=== PATIENT | female | born 1975 | race Caucasian/White ===

== ENCOUNTER 2020-04-10 15:29 | Outpatient (REF) | payer OTHER, SELFPAY | END 2020-04-10 15:30 | disposition home or self-care (01) | LOC: HO.LAB 15:29 | PROVIDERS: PCP Internal Medicine; Visit Provider Internal Medicine | DX: Z20.828 Contact with and (suspected) exposure to other viral communicable diseases (principal) | CPT/HCPCS: 87635 ==

== ENCOUNTER 2020-04-18 15:28 | Outpatient (REF) | payer OTHER, SELFPAY ==
--- NOTE | 2020-04-18 | MM_ITS ---
EXAMINATION: MM SCREENING DIGITAL BREAST TOMOSYNTHESIS, BILATERAL CLINICAL INFORMATION: Screening. Asymptomatic. The lifetime risk of breast cancer based on the Tyrer-Cuzick Model is 17.1%. COMPARISON: Mammography: October 15, 2017 and studies dating back to October 16, 2016 TECHNIQUE: Digital breast tomosynthesis is performed in both the craniocaudal and mediolateral oblique views along with computer-aided detection (CAD). Synthesized 2D images are generated from the tomosynthesis. FINDINGS: The breasts are heterogeneously dense, which may obscure small masses (ACR BI-RADS breast composition Category c). There are no significant masses, abnormal calcifications, or other abnormalities. MM/MM tomosynthesis screening BI IMPRESSION: There are no significant changes from prior study. ASSESSMENT: BI-RADS 1: Negative RECOMMENDATION: Routine annual mammography screening. This patient's information was entered into a reminder system with a target due date for their next mammogram.
== END 2020-04-18 15:29 | disposition home or self-care (01) ==
LOC: HO.MAMMO 15:28
PROVIDERS: Visit Provider Internal Medicine
DX: Z12.31 Encounter for screening mammogram for malignant neoplasm of breast (principal)
CPT/HCPCS: 77063; 77067

== ENCOUNTER 2020-04-24 19:12 | Emergency (ER) | payer OTHER, SELFPAY ==
[2020-04-24 19:16] VITALS: BP 131/79; PULSE 74; RESP 18; TEMP 36.9; O2SAT 100; BMI 23.9
--- NOTE | 2020-04-24 20:17 | CT_ITS ---
EXAMINATION: CT HEAD WITHOUT CONTRAST CLINICAL INFORMATION: Headache. COMPARISON: None. TECHNIQUE: Contiguous axial imaging was performed from the skull base to vertex without intravenous contrast. This CT examination was performed using dose optimization techniques as appropriate, variously including the following: * Automated exposure control * Adjustment of mA and/or kV according to patient size (this includes techniques or standardized protocols for targeted exams where dose is matched to indication/reason for exam; i.e. extremities or head) Use of iterative reconstruction technique DLP: 688 mGy-cm. FINDINGS: There is no evidence of acute intracranial hemorrhage or territorial infarction. No abnormal mass effect or midline shift is seen. Cannon to white matter differentiation is well preserved. No extra-axial fluid collections are identified. No hydrocephalus. Cavum septum pellucidum et vergae. No significant volume loss. There is no abnormal attenuation within the brain parenchyma. The osseous structures and soft tissues are normal. The mastoid air cells and visualized portions of the paranasal sinuses are well aerated. CT/CT head for stroke IMPRESSION: No acute intracranial pathology. This critical result was discussed with Otto Schuster MD by telephone at 04/24/2020 8:37 PM and it was ascertained that the content and urgency of the report was understood at the time of direct communication.
--- NOTE | 2020-04-24 20:18 | CT_ITS ---
EXAMINATION: CT angio head neck stroke CLINICAL INFORMATION: Headache. Family history of aneurysms. COMPARISON: CT scan of the head same day. TECHNIQUE: Watershed Manager images were obtained. A CT angiogram of the head and neck was performed in the arterial phase after the intravenous administration of 70 mL Omnipaque 350. Delayed postcontrast images of the head were also obtained. MIP reconstructions were generated in multiple orientations at the acquisition workstation. Multiple three-dimensional surface rendered images and maximum intensity projection images were generated on a dedicated 3-D lab workstation. Arterial stenoses are measured in accordance with NASCET criteria or similar method if applicable. This CT examination was performed using dose optimization techniques as appropriate, including one or more of the following: Automated exposure control, iterative reconstruction, and adjustment of technique factors (mA and/or kVp) according to patient size (this includes techniques or standardized protocols for targeted exams where dose is matched to indication/reason for exam). Total exam dose-length product 1511 mGy-cm FINDINGS: Head: Delayed postcontrast images reveal no abnormal mass or enhancement within the intracranial event. No intracranial mass effect or midline shift. Lateral and third ventricles are normal. No hydrocephalus. Cannon-white matter differentiation is grossly preserved and there is no evidence of acute territorial infarct. The calvarium and skull base are intact. Mastoid air cells and middle ear cavities are well aerated. No active paranasal sinus disease. CT angiogram neck: The aortic arch apex is normal. Origins of the major aortic branches are widely patent. Common carotid arteries and carotid bifurcations are normal. No stenosis of the extracranial internal carotid arteries. The cervical segments of vertebral arteries as well as their origins are patent. CT angiogram head: Intracranial internal carotid arteries are normal. The intradural vertebral artery segments and basilar artery are normal. Anterior, middle, and posterior cerebral artery complexes are normal. No high-grade stenosis or proximal occlusion is visualized within the intracranial vessels. No evidence of intracranial aneurysm. Other: Soft tissues of the neck are unremarkable. Visualized lung apices are clear. No acute osseous finding. CT/CT angio head neck stroke IMPRESSION: Unremarkable CT angiogram of the head and neck. No stenosis of the cervical carotid or vertebral arteries. No high-grade stenosis or proximal occlusion is visualized within the intracranial vessels. No evidence of aneurysm or high flow vascular malformation.
--- NOTE | 2020-04-24 20:22 | ED.HA ---
HPI - Headache General Chief Complaint: Headache Stated Complaint: Headache Time Seen by Provider: 04/24/20 20:17 Source: patient Mode of arrival: ambulatory Limitations: no limitations History of Present Illness HPI Narrative: 44 years old female history of migraine presented with the worst headache in her life it started yesterday then progressively getting worse, patient describes the headache as dull ache of the whole entire head, constant since yesterday, associated with nausea and vomiting and photophobia but no neck stiffness, light and noise triggers a headache, nothing relieved the headache, had prior episodes of migraine but this worse than the prior ones. Related Data Previous Rx's Medication Instructions Recorded amoxicillin-pot clavulanate 1 tab PO BID #14 tab 04/24/20 [Augmentin] prednisone 20 mg PO BID #10 tab 04/24/20 Allergies Allergy/AdvReac Type Severity Reaction Status Date / Time ethinyl estradiol Allergy Nasal Verified 04/24/20 19:26 [From Seasonale ()] congestion levonorgestrel Allergy Nasal Verified 04/24/20 19:26 [From Seasonale ()] congestion Review of Systems Review of Systems: All other systems are reviewed and are negative Constitutional: Reports as per HPI and Reports no additional constitutional complaints Eyes: Reports as per HPI and Reports no additional eye complaints Reports system reviewed and no additional complaints, except as documented Cardiovascular: Reports as per HPI and Reports no additional cardiovascular complaints Respiratory: Reports as per HPI and Reports no additional respiratory complaints Gastrointestinal: Reports as per HPI and Reports no additional gastrointestinal complaints Genitourinary: Reports no additional female genitourinary complaints Musculoskeletal: Reports no additional musculoskeletal complaints Skin/Breast: Reports system reviewed and no additional complaints, except as docu Psychiatric: Reports no additional psychiatric complaints Endocrine: Reports no additional endocrine complaints Hematologic/Lymphatic: Reports no additional hematologic/lymphatic complaints Allergic/Immunologic: Reports no additional allergic/immunologic complaints Reports system reviewed and no additional complaints, except as documented and Reports Abnormal speech present [facility] Past Medical History Medical History Asthma Gallbladder & bile duct stone with obstruction Headache Family History Family History (Updated 04/24/20 @ 20:27 by Otto Schuster MD) Sister Social History Social History Alcohol intake: never Smoked in Last 30 Days: No Use of substances other than those prescribed or required for medical reasons: No Advance Directives: No Advance Directives Information Provided: Yes Physical Exam Vital Signs: Vital Signs: Last Vital Signs Temp 98.5 F 04/24/20 19:16 Pulse 80 04/24/20 20:48 Resp 18 04/24/20 20:48 BP 117/74 04/24/20 20:48 Pulse Ox 100 04/24/20 20:48 Body Mass Index 23.9 Vital signs have been reviewed as normal and appeared to be correct. Blood pressure normal. Heart rate normal. Respiration rate normal. Temperature normal. Oxygen saturation normal. Appearance: Alert. Oriented X3. No acute distress. Head: Normal external exam. Normocephalic. Atraumatic. No De signs noted. No raccoon eyes noted Eyes: PERRLA. EOMI. Conjunctiva and sclera normal. Eyelids normal. ENT: EAC normal. TM's Normal. Pharynx normal. Uvula midline. Moist mucous membranes. No trismus noted. No drooling noted. No muffled voice noted. Neck: Normal inspection. Neck supple. FROM. No adenopathy. Thyroid Normal. No meningeal signs. No neck mass noted. CVS: Normal heart rate and rhythm. Heart sound normal. No murmurs noted. Pulses normal throughout. Respiratory: No respiratory distress. Painless inspiration. Breath sounds normal. No wheezes/rales/rhonchi noted. Chest nontender. No accessory muscle usage noted or decreased air movement noted. Abdomen: Soft and nontender. Bowel sounds normal in all 4 quadrants. No distention noted. No organomegaly noted. No visible injury noted. Back: No CVA tenderness. Full range of motion noted. Skin: Skin warm and dry. Normal skin color. Normal skin turgor. No rashes/lesions/lacerations noted. Extremities: No lower extremity edema. Extremities exhibit normal range of motion. Extremities nontender. Neuro: Oriented X 3. No motor deficit. No sensory deficit. Reflexes normal. Course Course Course Narrative: 44 years old female history of migraine presented with worst headache of her life, pain started gradually since yesterday but it is worse today, no neck stiffness, but since patient had strong family history of stroke sister at age 42 from acute stroke unclear if this bleed/ischemic stroke, but also reported strong family history presents of cerebral aneurysm. Will consider CT rule out subarachnoid hemorrhage, CTA to rule out aneurysm, pain control, reassess. MDM - Headache MDM Narrative Medical decision making narrative: Assessment and plan. 44-year-old female with history of migraine came in with severe headache affecting her entire head but more at the right side frontal area, because patient family history of young-due to strokes and aneurysm considered CTA of the head and neck to rule out aneurysms. 1. Patient received anti emetic medications/Benadryl/morphine/IV hydration patient is feels better now. 2. CTA of the head and neck ruled out intracerebral aneurysm therefore subarachnoid hemorrhage is extremely unlikely in this setting. 3. Repeat exam showed tenderness to palpation over right frontal sinus patient had history of sinusitis in the past will start the patient on amoxicillin/course of prednisone for 4 days. Differential Diagnosis Differential diagnosis: Likely migraine, tension headache, subarachnoid hemorrhage, headache and sinusitis Lab Data Attestation: I reviewed the patient's lab results. Result diagrams: 04/24/20 20:32 04/24/20 20:32 Labs: Lab Results 04/24/20 04/24/20 04/24/20 Range/Units 20:32 20:32 21:39 WBC 8.8 (4.8-10.8) X10*3/uL RBC 4.03 L (4.20-5.50) X10*6/uL Hgb 12.7 (12.0-16.0) g/dl Hct 37.6 (37-47) % MCV 93.3 (80-98) fL MCH 31.5 (27.0-33.0) pg MCHC 33.8 (31.0-35.0) g/dl RDW 12.0 (11.0-16.0) % Plt Count 270 (160-400) X10*3/uL MPV 10.4 (9.4-12.3) fL Immature Gran % (Auto) 0.1 (0.0-0.4) % Neut % (Auto) 64.0 (45-73) % Lymph % (Auto) 28.3 (20-40) % Thomas % (Auto) 6.3 (2-11) % Eos % (Auto) 1.1 (0-4) % Baso % (Auto) 0.2 (0-2) % Lymph # (Auto) 2.5 (1.2-4.9) X10*3/uL Thomas # (Auto) 0.6 (0.1-1.2) X10*3/uL Eos # (Auto) 0.1 (0.0-0.4) X10*3/uL Baso # (Auto) 0.0 (0.0-0.2) X10*3/uL Abs Immat Gran (auto) 0.01 (0.00-0.03) X10*3/uL Absolute Neuts (auto) 5.6 (2.0-8.3) X10*3/uL Absolute Nucleated RBC 0.000 (0.0-0.012) X10*3/uL Nucleated RBC % (auto) 0.0 (0.0-0.2) /100WBC Sodium 136 (135-145) mmol/L Potassium 3.9 (3.3-5.1) mmol/l Chloride 104 (96-108) mmol/L Carbon Dioxide 22 (22-29) mmol/L Anion Gap 14 (12-20) BUN 8 L (9-16) mg/dL Creatinine 0.72 (0.5-1.4) mg/dL Estim Creat Clear Calc 98.9 Estimated GFR > 60 Random Glucose 101 (60-115) mg/dL Calcium 8.9 (8.4-10.2) mg/dL Urine Color YELLOW Urine Appearance CLEAR Urine pH 7.0 (5.0-8.0) Ur Specific [place] <= 1.005 (1.005-1.025) Urine Protein NEG (NEG-TRACE) MG/DL Urine Glucose (UA) NEG (NEG) MG/DL Urine Ketones 5 (NEG) MG/DL Urine Blood 1+ H (NEG) Urine Nitrite NEG (NEG) Ur Leukocyte Esterase NEG (NEG) Urine RBC 0-2 (0) /HPF Urine WBC 0 (0-4) /HPF Ur Squamous Epith Cells TRACE /LPF Urine Bacteria NONE /LPF Urine Test NEGATIVE (NEGATIVE) Imaging Data CT scan - head: Radiologist's impression: No acute pathology, no evidence of subarachnoid hemorrhage in particular. CT angiogram of head and neck: My impression: IMPRESSION: Unremarkable CT angiogram of the head and neck. No stenosis of the cervical carotid or vertebral arteries. No high-grade stenosis or proximal occlusion is visualized within the intracranial vessels. No evidence of aneurysm or high flow vascular malformation. Discharge Plan Discharge Clinical Impression: Headache, Sinusitis Patient Disposition: Home, Self-Care Instructions: Sinusitis (ED), Acute Headache (ED) Prescriptions: New amoxicillin-pot clavulanate [Augmentin] 875-125 mg tablet 1 tab PO BID Qty: 14 RF: 0 prednisone 20 mg tablet 20 mg PO BID Qty: 10 RF: 0 Referrals: Kary Acuña MD [Primary Care Provider] - 2 days
[2020-04-24 20:39] LABS: Basophils Percent Auto 0.2 % (0-2); Eosinophils Absolute Auto 0.1 X10*3/uL (0.0-0.4); Eosinophils Percent Auto 1.1 % (0-4); Hematocrit 37.6 % (37-47); Hemoglobin 12.7 g/dl (12.0-16.0); Imm Gran Abs Auto 0.01 X10*3/uL (0.00-0.03); Imm Gran Pct Auto 0.1 % (0.0-0.4); Lymphocytes Absolute Auto 2.5 X10*3/uL (1.2-4.9); Lymphocytes Percent Auto 28.3 % (20-40); MANUAL DIFF FLAG NO; Mean Corpuscular HGB Conc 33.8 g/dl (31.0-35.0); Mean Corpuscular Hemoglobin 31.5 pg (27.0-33.0); Mean Corpuscular Volume 93.3 fL (80-98); Mean Platelet Volume 10.4 fL (9.4-12.3); Monocytes Absolute Auto 0.6 X10*3/uL (0.1-1.2); Monocytes Percent Auto 6.3 % (2-11); Neutrophils Absolute Auto 5.6 X10*3/uL (2.0-8.3); Platelet Count 270 X10*3/uL (160-400); Red Blood Count 4.03 X10*6/uL (4.20-5.50); White Blood Count 8.8 X10*3/uL (4.8-10.8)
[2020-04-24] MEDS: iohexoL 350 MG/ML 100 ML INFUS..BTL 70 ML IV (20:45)
[2020-04-24 20:48] VITALS: BP 117/74; PULSE 80; RESP 18; O2SAT 100
[2020-04-24 20:57] LABS: Anion Gap 14 (12-20); Blood Urea Nitrogen 8 mg/dL (9-16); Calcium 8.9 mg/dL (8.4-10.2); Carbon Dioxide 22 mmol/L (22-29); Chloride 104 mmol/L (96-108); Creatinine Clr Calc Pharmacy 98.9; Estimated Glomerular Filt Rate > 60; Glucose Random 101 mg/dL (60-115); Potassium 3.9 mmol/l (3.3-5.1); Sodium 136 mmol/L (135-145)
[2020-04-24] MEDS: diphenhydrAMINE HCL 50 MG/ML VIAL 25 MG IVPUSH (21:37)
[2020-04-24] MEDS: Morphine Sulfate 2 MG/ML CARTRIDGE IVPUSH (21:37)
[2020-04-24] MEDS: ondansetron HCL 4 MG/2 ML VIAL IVPUSH (21:37)
[2020-04-24] MEDS: Amoxicillin 500 MG CAPSULE PO (21:37)
[2020-04-24] MEDS: 0.9 % Sodium Chloride 500 ML 1000 ML IV (21:50)
[2020-04-24 22:02] LABS: Glucose Urine UA NEG (NEG); Leukocyte Esterase Urine NEG (NEG); Nitrite Urine NEG (NEG); Specific Gravity - Urine <= 1.005 (1.005-1.025); Urine Blood 1+ (NEG); Urine Ketones 5 MG/DL (NEG); Urine Protein NEG (NEG-TRACE)
[2020-04-24 22:05] LABS: Appearance Urine CLEAR; Color Urine YELLOW
[2020-04-24 22:06] LABS: UPreg QC Valid YES; Urine Pregnancy NEGATIVE (NEGATIVE)
[2020-04-24 22:16] LABS: RBC Urine 0-2 /HPF (0); Squamous Epithelial Cell Urine TRACE /LPF; WBC Urine 0 /HPF (0-4)
== END 2020-04-24 23:03 | disposition home or self-care (01) ==
PROVIDERS: Emergency Provider Emergency Medicine; PCP Internal Medicine
DX: R51.9 Headache, unspecified (principal); J01.90 Acute sinusitis, unspecified; R11.2 Nausea with vomiting, unspecified; H53.149 Visual discomfort, unspecified
CPT/HCPCS: 36415; 70450; 70496; 70498; 80048; 81001; 81003; 81025; 85025; 96374; 96375; 96376; 99284; J1200; J2270; J2405; Q9967

== ENCOUNTER 2020-10-23 09:19 | Outpatient (REF) | payer OTHER, SELFPAY ==
[2020-10-24 00:12] LABS: CT PCR NOT DETECTED (Not Detect.); NG PCR NOT DETECTED (Not Detect.)
[2020-10-24 12:04] LABS: BV Int Neg Control Negative (Negative); BV Int Pos Control Positive (Positive)
[2020-10-26 07:17] LABS: HPV mRNA E6/E7 rflx Not Detected (Not Detected)
== END 2020-10-23 09:20 | disposition home or self-care (01) ==
LOC: HO.LAB 09:19
PROVIDERS: PCP Internal Medicine; Visit Provider Obstetrics & Gynecology
DX: Z01.419 Encounter for gynecological examination (general) (routine) without abnormal findings (principal); N39.3 Stress incontinence (female) (male); Z88.8 Allergy status to other drugs, medicaments and biological substances; Z98.51 Tubal ligation status
CPT/HCPCS: 87480; 87491; 87510; 87591; 87624; 87660; 88142

== ENCOUNTER 2020-11-27 11:00 | Outpatient (RCR) | payer OTHER, SELFPAY ==
--- NOTE | 2020-11-06 14:53 | MHC.PT.EP ---
[facility] [place] Office [place] Office [place] Office [address] Radha Hassan 140 [facility] [phone] F: [phone] F: [phone] F: [phone] F: [phone] Physical Therapy Plan of Care Date of Evaluation: Date of Surgery: Diagnosis: stress urinary incontinence Assessment: The patient arrived reporting stress urinary incontinence. After granted patient consent an internal exam was performed and the patient was found to have decreased strength and coordination of her pelvic floor muscles. Increased tissue tension noted in the right OI, Tenderness to palpation of the right OI. No pelvic organ prolapse noted. cervix palpable at 3rd knuckle Most notable, the patient had poor PF endurance, and decreased ability to do a quick contraction of her pelvic floor. She did not exhibit a pre activation of her PFM with a cough. She is reporting signs of mixed urinary incontinence including stress and urge. I will issue behavioral training to help with urge incontinence. The patient will greatly benefit from Pelvic Floor PT in order to improve coordination, and strength of her pelvic floor muscles, as well as body mechanics training with pre activation of her PFM, and behavioral training to help with urge incontinence. Frequency and Duration: The patient will be seen 1x/week x 6 weeks Short Term Goals: 1. Pt to be able to correctly activate her PFM to allow improved support to bowel and bladder. 2. Pt to be able to demonstrate a pre contraction before a cough 3. Pt to be able to demonstrate diaphragmatic breathing to improve pressure exchange and intra abdominal load management. 4 Pt to be educated on bladder irritants in order to decrease UI triggers 5. Pt to complete a voiding log in order to accurately assess her bladder habits Skilled Nursing Goals: 1. Pt to be able to show improved PFM contraction during functional movements such as a bridge or squat to help prevent or limit POP. 2. Pt to reduce # of episodes of [place] during the day by 50% to help improve quality of life and reduce pad usage. 3. Pt to be independent with her final HEP for PFM in order to help maintain gains made in therapy. 4. Pt to be educated on behavior training to help decrease urge incontinence. Treatment Plan: Modalities to reduce pain, spasms and effusion. Manual therapy to restore motion and function. Therapeutic exercise to improve strength and flexibility. Neuromuscular re-education for posture and balance. Therapeutic activities to return to functional activities of daily living. Electronically signed by: Lesly Strong PT DPT Please sign and return to therapist. Thank you for your referral.
== END 2020-12-04 08:00 | disposition home or self-care (01) ==
LOC: HO.PT 11:00
PROVIDERS: PCP Internal Medicine; Visit Provider Obstetrics & Gynecology
DX: N39.3 Stress incontinence (female) (male) (principal)
CPT/HCPCS: 97110; 97112; 97140; 97161

== ENCOUNTER 2021-12-13 11:53 | Outpatient (REF) | payer OTHER, SELFPAY ==
[2021-12-13 21:15] LABS: CT PCR NOT DETECTED (Not Detect.); NG PCR NOT DETECTED (Not Detect.)
[2021-12-14 13:36] LABS: BV Int Neg Control Negative (Negative); BV Int Pos Control Positive (Positive)
[2021-12-18 22:46] LABS: HPV mRNA E6/E7 rflx Not Detected (Not Detected)
== END 2021-12-13 11:54 | disposition home or self-care (01) ==
LOC: HO.LAB 11:53
PROVIDERS: Visit Provider Advanced Practice Midwife
DX: Z01.419 Encounter for gynecological examination (general) (routine) without abnormal findings (principal); Z20.2 Contact with and (suspected) exposure to infections with a predominantly sexual mode of transmission; Z87.42 Personal history of other diseases of the female genital tract
CPT/HCPCS: 87480; 87491; 87510; 87591; 87624; 87660; 88142

== ENCOUNTER 2022-12-20 10:46 | Outpatient (REF) | payer OTHER, SELFPAY ==
[2022-12-22 09:41] LABS: Syphilis Screen Nonreactive (Nonreactive)
[2022-12-22 11:06] LABS: HBsAGNum1 0.29 S/CO (0.00-0.99); HIV AB/AG Nonreactive (Nonreactive); Hepatitis B Surface Antigen Negative (Negative); ~HepC Num1 0.07 S/CO (0.00-0.79); ~Hepatitis C Antibody Nonreactive (Nonreactive)
== END 2022-12-20 10:47 | disposition home or self-care (01) ==
LOC: CF 10:46
PROVIDERS: PCP Internal Medicine; Visit Provider Advanced Practice Midwife
DX: Z11.4 Encounter for screening for human immunodeficiency virus [HIV] (principal); N76.0 Acute vaginitis; B96.89 Other specified bacterial agents as the cause of diseases classified elsewhere; Z20.2 Contact with and (suspected) exposure to infections with a predominantly sexual mode of transmission; Z87.42 Personal history of other diseases of the female genital tract; Z80.3 Family history of malignant neoplasm of breast
CPT/HCPCS: 36415; 86780; 86803; 87340; 87389

== ENCOUNTER 2022-12-20 11:37 | Outpatient (REF) | payer OTHER, SELFPAY ==
[2022-12-26 05:18] LABS: HPV mRNA E6/E7 rflx Not Detected (Not Detected)
== END 2022-12-20 11:38 | disposition home or self-care (01) ==
LOC: HO.LNP 11:37
PROVIDERS: Visit Provider Advanced Practice Midwife
DX: Z12.4 Encounter for screening for malignant neoplasm of cervix (principal); Z11.51 Encounter for screening for human papillomavirus (HPV); Z20.2 Contact with and (suspected) exposure to infections with a predominantly sexual mode of transmission; Z87.42 Personal history of other diseases of the female genital tract
CPT/HCPCS: 0353U; 87480; 87510; 87624; 87660; 88142

== ENCOUNTER 2023-04-23 13:00 | Outpatient (AMB) | payer OTHER, SELFPAY ==
[2023-04-23 13:13] VITALS: BMI 21.6
--- NOTE | 2023-04-23 13:13 | A.OFFVIS_ITS ---
Intake Vital Signs 04/23/23 13:13 Height 5 ft 7 in Weight 138 lb BMI 21.6 Intake Visit Reasons: 15 days bleeding Intake Note: menses for 15 days acompanied by breast pain Machine Riveter Required: No Information Interpreted: non-clinical & clinical Educational Program Director: Educational Program Director Present (Sameer) Allergies ethinyl estradiol [From Seasonale (91)] Allergy (Verified 04/23/23 13:17) Nasal congestion levonorgestrel [From Seasonale (91)] Allergy (Verified 04/23/23 13:17) Nasal congestion Medication List - Last Reconciled 04/23/23 by Carmita Torres CNM albuterol sulfate 90 mcg/actuation inhalation fluticasone propionate 50 mcg/actuation 1 spray intranasal BID loratadine 10 mg PO DAILY Is last menstrual period known: Yes Last menstrual period: 04/09/23 Post menopausal: No HPI 15 days bleeding HPI Details Patient is here because she has been bleeding for 15 days 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 [facility] Medical History History of migraine Gallbladder & bile duct stone with obstruction Asthma Surgical History History of knee surgery History of placement of ear tubes History of cholecystectomy History of bilateral tubal ligation Family History Sister Breast cancer Maternal Aunt Colon cancer Maternal Uncle Colon cancer Social History Alcohol intake: never Gender identity: Female Female Reproductive History Menstrual Age of Menarche: 15 Duration of menses: 3-5 days Date of last menstrual period: 04/09/23 control method: other (tubal ligation) Total pregnancies: 3 Number of Living Children: 3 Date of last pap smear: 12/24/22 (negative) History of abnormal pap smear: Yes (2018 [facility]) Physical Exam Vital Signs: BMI result Body Mass Index 21.6 Other: . multparous cervix; uterus is Is small retroverted mobile nontender see EMB procedure External Female Exam: normal external appearance Speculum Exam - Vagina: normal appearance of the vagina and normal vaginal discharge Speculum Exam - Cervix: normal appearance of the cervix Bimanual exam- vagina & uterus: normal bimanual exam, uterine size normal, consistency normal, uterine mobility normal, uterine shape normal and non-tender Bimanual Exam- Adnexa, other: normal adnexae, no masses and No adnexal tenderness Office Procedures Endometrial Biopsy Details: Patient is here for an endometrial biopsy. I explained the procedure and what the goal of the obtaining the sample is, and why we need need to do it today. Patient signed consent form, and appropriate testing was done beforehand. test is negative Patient was placed in recumbent position. Speculum was placed to visualize cervix the cervix was cleansed with Betadine. A tenaculum was gently placed to straighten the axis. The uterus was sounded to 8 cm. The endometrial biopsy Pipelle was inserted gently, and withdrawn to obtain sampling of the endometrial tissue for 3 passes. The tenaculum was removed and the cervix was swabbed gently as any bleeding subsided. the patient sat up after removal of the speculum. She is to return for discussion of the results and review of any other testing. [id number] Biopsy Results AMB Test Urine AMB Test Urine Negative Last Edit by EILEEN Lagos on 04/23/23 14:21 Results Reviewed Results Reviewed: Laboratory Last Values [facility] Clinic Negative 04/23/23 14:19 Assessment & Plan Assessment & Plan (1) Hx of abnormal cervical Pap smear: Comment: hx of abnormals over years...../// pap done 12/13/21= negative with negative HPV; 12/20/2022 Pap is negative with negative HPV. Code(s): Z87.42 - Personal history of other diseases of the female genital tract (2) Potential exposure to STD: Code(s): Z20.2 - Contact with and (suspected) exposure to infections with a predominantly sexual mode of transmission (3) Abnormal uterine bleeding (AUB): Code(s): N93.9 - Abnormal uterine and vaginal bleeding, unspecified (4) Family history of breast cancer in first degree relative: Comment: sister dec of breast CA, before brca testing done pt and neice BRCA neg, gets reg mammograms Code(s): Z80.3 - Family history of malignant neoplasm of breast Plan Discussed with patient that the best workup for this would be endometrial biopsy and ultrasound. patient was willing to doendometrial bx today..the u/s is ordered urgently so that it can be done before she returns for the results. 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 If I did not get enough sampling we might need to repeat this Orders: Orders US pelvic and transvaginal Today N93.9 - Abnormal uterine and vaginal bleeding, unspecified, Z87.42 - Personal history of other diseases of the female genital tract Bacterial Vaginosis Panel Today N93.9 - Abnormal uterine and vaginal bleeding, unspecified CT NG by PCR Today N93.9 - Abnormal uterine and vaginal bleeding, unspecified AMB HCG Urine Test Today Z32.02 - Encounter for test, result negative Complete Blood Count no Diff Today N93.9 - Abnormal uterine and vaginal bleeding, unspecified, Z20.2 - Contact with and (suspected) exposure to infections with a predominantly sexual mode of transmission, Z80.3 - Family history of malignant neoplasm of breast, Z87.42 - Personal history of other diseases of the female genital tract Thyroid Stimulating Hormone Today N93.9 - Abnormal uterine and vaginal bleeding, unspecified, Z20.2 - Contact with and (suspected) exposure to infections with a predominantly sexual mode of transmission, Z80.3 - Family history of malignant neoplasm of breast, Z87.42 - Personal history of other diseases of the female genital tract Prolactin Today N93.9 - Abnormal uterine and vaginal bleeding, unspecified, Z20.2 - Contact with and (suspected) exposure to infections with a predominantly sexual mode of transmission, Z80.3 - Family history of malignant neoplasm of breast, Z87.42 - Personal history of other diseases of the female genital tract AMB Endometrial Biopsy Today N93.9 - Abnormal uterine and vaginal bleeding, unspecified, Z20.2 - Contact with and (suspected) exposure to infections with a predominantly sexual mode of transmission, Z80.3 - Family history of malignant neoplasm of breast, Z87.42 - Personal history of other diseases of the female genital tract Surgical Today N93.9 - Abnormal uterine and vaginal bleeding, unspecified Follicle Stimulating Hormone Today N93.9 - Abnormal uterine and vaginal bleeding, unspecified, Z20.2 - Contact with and (suspected) exposure to infections with a predominantly sexual mode of transmission, Z80.3 - Family history of malignant neoplasm of breast, Z87.42 - Personal history of other diseases of the female genital tract Coding Level of Care Code Est Pt Level 3 (66787) Diagnoses Hx of abnormal cervical Pap smear Z87.42 Potential exposure to STD Z20.2 Abnormal uterine bleeding (AUB) N93.9 Family history of breast cancer in first degree relative Z80.3 CPT Codes Endometrial Biopsy - CPT: 78652-[id number] Biopsy ([id number])
== END 2023-04-23 14:26 | disposition home or self-care (01) ==
LOC: HO.HWS 13:00
PROVIDERS: PCP Internal Medicine; Visit Provider Advanced Practice Midwife
DX: N93.9 Abnormal uterine and vaginal bleeding, unspecified (principal); Z20.2 Contact with and (suspected) exposure to infections with a predominantly sexual mode of transmission; Z80.3 Family history of malignant neoplasm of breast; Z32.02 Encounter for pregnancy test, result negative
CPT/HCPCS: 58100; 99213

== ENCOUNTER 2023-04-23 13:00 | Outpatient (REF) | payer OTHER, SELFPAY ==
[2023-04-24 06:08] LABS: CT PCR NOT DETECTED (Not Detect.); NG PCR NOT DETECTED (Not Detect.)
[2023-04-24 12:54] LABS: BV Int Neg Control Negative (Negative); BV Int Pos Control Positive (Positive)
== END 2023-04-23 13:01 | disposition home or self-care (01) ==
LOC: HO.LNP 13:00
PROVIDERS: PCP Internal Medicine; Visit Provider Advanced Practice Midwife
DX: N93.9 Abnormal uterine and vaginal bleeding, unspecified (principal); Z20.2 Contact with and (suspected) exposure to infections with a predominantly sexual mode of transmission; Z80.3 Family history of malignant neoplasm of breast; Z87.42 Personal history of other diseases of the female genital tract; Z32.02 Encounter for pregnancy test, result negative; Z79.899 Other long term (current) drug therapy
CPT/HCPCS: 0353U; 58100; 81025; 87480; 87510; 87660; 88305; 99212

== ENCOUNTER 2023-04-25 15:34 | Outpatient (REF) | payer OTHER, SELFPAY ==
--- NOTE | ~2023-04-25 | US_ITS ---
EXAMINATION: US PELVIS CLINICAL INFORMATION: Abnormal uterine bleeding. History of recent endometrial biopsy COMPARISON: Previous pelvic ultrasound October 1999 TECHNIQUE: Ultrasound of the pelvis is performed using both transabdominal and transvaginal transducers along with Doppler. Transvaginal imaging is performed due to inadequate visualization transabdominally. FINDINGS: The uterus is anteverted and retroflexed and measures 8 x 5.6 x 6 cm in dimension. No focal uterine lesion is seen. Endometrial thickness is normal and measures 0.9 cm. The right ovary measures 4.5 x 3 x 3.5 cm. There is a 3 x 2.4 x 2.9 cm slightly complex right ovarian cyst with slightly thickened wall and peripheral septation. The left ovary is normal-appearing and measures 2.6 x 1 x 1.1 cm. There is no fluid in the pelvis. US/US pelvic and transvaginal IMPRESSION: Normal thickness endometrium measuring 9 mm. 3 x 2.4 x 2.9 cm minimally complex right ovarian cyst. 3 month ultrasound follow-up could be considered.
== END 2023-04-25 15:35 | disposition home or self-care (01) ==
LOC: HO.HMGCX 15:34
PROVIDERS: PCP Internal Medicine; Visit Provider Advanced Practice Midwife
DX: N93.9 Abnormal uterine and vaginal bleeding, unspecified (principal); Z87.42 Personal history of other diseases of the female genital tract
CPT/HCPCS: 76830; 76856

== ENCOUNTER 2023-04-28 09:44 | Outpatient (REF) | payer OTHER, SELFPAY ==
[2023-04-28 13:45] LABS: Hematocrit 35.9 % (37.0-47.0); Mean Corpuscular HGB Conc 33.4 g/dl (31.0-35.0); Mean Corpuscular Hemoglobin 30.6 pg (27.0-33.0); Mean Corpuscular Volume 91.6 fL (80.0-98.0); Platelet Count 302 X10*3/uL (160-400); Red Blood Count 3.92 X10*6/uL (4.20-5.50); Red Cell Distribution Width 12.4 % (11.0-16.0); White Blood Count 5.2 X10*3/uL (4.8-10.8)
[2023-04-28 14:10] LABS: Thyroid Stimulating Hormone 0.87 uIU/mL (0.32-4.0)
[2023-04-29 07:34] LABS: Follicle Stimulating Hormone 12.1 mIU/mL; Prolactin 6.9 ng/mL
== END 2023-04-28 09:45 | disposition home or self-care (01) ==
LOC: HO.HMGCLDS 09:44
PROVIDERS: PCP Internal Medicine; Visit Provider Advanced Practice Midwife
DX: N93.9 Abnormal uterine and vaginal bleeding, unspecified (principal); Z87.42 Personal history of other diseases of the female genital tract; Z20.2 Contact with and (suspected) exposure to infections with a predominantly sexual mode of transmission; Z80.3 Family history of malignant neoplasm of breast
CPT/HCPCS: 36415; 83001; 84146; 84443; 85027

== ENCOUNTER 2023-05-13 10:10 | Outpatient (AMB) | payer OTHER, SELFPAY ==
--- NOTE | 2023-05-13 10:20 | MHC.OFFVIS ---
Intake Vital Signs 05/13/23 10:23 Height 5 ft 7 in Weight 137 lb BMI 21.5 BP 110/62 Intake Visit Reasons: Ultrasound and EMB follow up Transportation Technician Required: No Information Interpreted: clinical only Allergies ethinyl estradiol [From Seasonale (91)] Allergy (Verified 05/13/23 10:24) Nasal congestion levonorgestrel [From Seasonale (91)] Allergy (Verified 05/13/23 10:24) Nasal congestion Medication List - Last Reconciled 05/13/23 by Carmita Torres CNM albuterol sulfate 90 mcg/actuation inhalation fluticasone propionate 50 mcg/actuation 1 spray intranasal BID loratadine 10 mg PO DAILY Is last menstrual period known: Yes Last menstrual period: 04/09/23 HPI Ultrasound and EMB follow up HPI Details Patient is here for follow-up of her ultrasound and endometrial biopsy results she had an episode of bleeding for 15 days and it was under being because it it never happened before for her. The bleeding has stopped now. I reviewed the results of the endometrial biopsy which are negative for any atypia or endometrial cancer and the ultrasound which showed normal endometrial lining and a minimally complex ovarian cyst which could be followed up on in 3 months. Patient had her tubes tied and she did have a Mirena way back about 20 years ago and it was causing her some cramping so it was removed at the time I discussed with her that that would be 1 possible way of controlling periods if she either wished to or if the irregular bleeding returned and she wanted to manage it. She said she will think about it if it occurs again but for now she will just see what happens. She went to physical therapy and has been doing the Kegel exercises and thinks there is some improvement but she still does need to wear panty liners because her work environment and sometime she is not able to run to the bathroom when she wishes she could. She is continuing to work on it. Because of wearing panty liners and also because she had to wear the pads for the 15 days she thinks she has a mild yeast infection and would like another prescription for Diflucan which I will send to her pharmacy. Radiology recommended possible 3 month follow-up ultrasound so I will put in an order for that and she and I can have a tele visit after that. I also reviewed her lab work which was also done and was normal [facility] Medical History History of migraine Gallbladder & bile duct stone with obstruction Asthma Surgical History History of knee surgery History of placement of ear tubes History of cholecystectomy History of bilateral tubal ligation Family History Sister Breast cancer Maternal Aunt Colon cancer Maternal Uncle Colon cancer Alcohol intake: never Gender identity: Female Female Reproductive History Menstrual Age of Menarche: 15 Date of last menstrual period: 04/09/23 Physical Exam Vital Signs: Last Vital Signs BP 110/62 05/13/23 10:23 BMI result Body Mass Index 21.5 Results Reviewed Results Reviewed: Name: Charline Palumbo Age/Sex: 47/F Attending: Carmita Torres CNM : 1975 Submitted by: Carmita Torres CNM Copies to: Kary Acuña MD MR #: [id number] Status: DEP REF Collected: 04/23/23 Location: [facility] Received: 04/24/23 Diagnosis Endometrium, biopsy: Benign dyssynchronous endometrium with proliferative to early secretory to mid secretory features, focal inactive glands, and focal breakdown; no atypia or carcinoma. Clinical History AUB Microscopic Description Microscopic sections reviewed. Material Received EMB Gross Description Received in formalin labeled ?EMB? is a 2.0 x 1.5 x 0.5 cm aggregate of mucus, blood and multiple congested and hemorrhagic maroon-brown irregular and tubular cast fragments of tissue, submitted in toto in cassette A. CEDS Copies To Kary Acuña MD [address] [place] [address] Carmita Torres CNM [address] [place] [address] Dr. Eliza Thornton [place], [place] [id number] NOTE: Unless otherwise stated, all tissue is formalin-fixed and paraffin-embedded. Some or all of the immunohistochemical tests reported herein may have been developed and their performance characteristics determined by [facility]. They have not been cleared or approved by the U.S. Food and Drug Administration (FDA). However, the FDA has determined that such clearance or approval is not necessary. This laboratory is certified under the Clinical Laboratory Improvement Amendments of 1988 (CLIA) as qualified to perform high complexity clinical laboratory testing. Electronically Signed By: Nirali Garcia 04/25/23 1505 Patient: Charline Palumbo Age/Sex: 47/F MR#: [id number] Page 1 of 1 Patient: Charline Palumbo MR#: [id number] : 1975 Acct:[id number] Age/Sex: 47 / F ADM Date: 04/25/23 Loc: HO.HMGCX Attending Dr: Carmita Torres CNM Ordering Physician: Carmita Torres CNM Date of Service: 04/25/23 Procedure(s): US pelvic and transvaginal Accession Number(s): [id number] cc: Kary Acuña MD; Carmita Torres CNM~ EXAMINATION: US PELVIS CLINICAL INFORMATION: Abnormal uterine bleeding. History of recent endometrial biopsy COMPARISON: Previous pelvic ultrasound October 1999 TECHNIQUE: Ultrasound of the pelvis is performed using both transabdominal and transvaginal transducers along with Doppler. Transvaginal imaging is performed due to inadequate visualization transabdominally. FINDINGS: The uterus is anteverted and retroflexed and measures 8 x 5.6 x 6 cm in dimension. No focal uterine lesion is seen. Endometrial thickness is normal and measures 0.9 cm. The right ovary measures 4.5 x 3 x 3.5 cm. There is a 3 x 2.4 x 2.9 cm slightly complex right ovarian cyst with slightly thickened wall and peripheral septation. The left ovary is normal-appearing and measures 2.6 x 1 x 1.1 cm. There is no fluid in the pelvis. US/US pelvic and transvaginal IMPRESSION: Normal thickness endometrium measuring 9 mm. 3 x 2.4 x 2.9 cm minimally complex right ovarian cyst. 3 month ultrasound follow-up could be considered. Dictated By: Bhavya Slaughter MD Signed By: <Electronically signed by Bhavya Slaughter MD in OV> 04/25/232200 DD/ 162 TD/TT: Suture Winder Hand: CHAD Name: Charline Palumbo Age/Sex: 47/F : 1975 Unit#: [id number] Attend Dr: Carmita Torres CNM Re04/28/23 Status: DEP REF Location: [facility] Disch: SPEC : [id number] [place]: 04/28/23 STATUS: COMP REQ : [id number] RECD: 04/28/[address] [facility] [address]: Carmita Torres COMP: 04/28/23 ENTERED: 04/28/[address] [facility] [address]: Kary Acuña MD ORDERED: TSH Test Result Flag Reference Site TSH 3rd Gen. 0.87 0.32-4.0 uIU/mL Name: Charline Palumbo Age/Sex: 47/F : 1975 Unit#: [id number] Attend Dr: Carmita Torres Re04/28/23 Status: DEP REF Location: HO.[facility] Disch: SPEC : [id number] [place]: 04/28/23 STATUS: COMP REQ : [id number] RECD: 04/28/[address]: Carmita Torres [facility] COMP: 04/29/23 ENTERED: 04/28/[address]: Kray Acuña MD ORDERED: FSH, Prol Test Result Flag Reference Site FSH 12.1 mIU/mL QUM Reference Range Follicular Phase 2.5-10.2 Mid-cycle Peak 3.1-17.7 Luteal Phase 1.5- 9.1 Postmenopausal 23.0-116.3 THIS TEST WAS PERFORMED AT: [facility] [address] [place] [phone] AI BYERS MD Prolactin 6.9 ng/mL QUM Reference Range Females Non- 3.0-30.0 10.0-209.0 Postmenopausal 2.0-20.0 THIS TEST WAS PERFORMED AT: [facility] [address] [place] [phone] AI BYERS MD Name: Charline Palumbo Age/Sex: 47/F : 1975 Unit#: [id number] Attend Dr: Carmita Torres [facility] Re04/28/23 Status: DEP REF Location: [facility] Disch: SPEC : [id number] [place]: 04/28/23 STATUS: COMP REQ : [id number] RECD: 04/28/[address]: Carmita Torres [facility] COMP: 04/28/23 ENTERED: 04/28/[address]: Kary Acuña MD ORDERED: CBC No Diff Test Result Flag Reference Site WBC 5.2 4.8-10.8 X10*3/uL RBC 3.92 L 4.20-5.50 X10*6/uL HGB 12.0 12.0-16.0 g/dl HCT 35.9 L 37.0-47.0 % MCV 91.6 80.0-98.0 fL MCH 30.6 27.0-33.0 pg MCHC 33.4 31.0-35.0 g/dl RDW 12.4 11.0-16.0 % PLT 302 160-400 X10*3/uL MPV 11.0 9.4-12.3 fL NRBC Pct Auto 0.0 0.0-0.2 /100WBC NRBC Abs Auto 0.000 0.0-0.012 X10*3/uL Assessment & Plan Assessment & Plan (1) Abnormal uterine bleeding (AUB): Code(s): N93.9 - Abnormal uterine and vaginal bleeding, unspecified (2) Yeast infection involving the vagina and surrounding area: Code(s): B37.31 - Acute candidiasis of vulva and vagina (3) Ovarian cyst, complex: Code(s): N83.299 - Other ovarian cyst, unspecified side Plan Patient is here for follow-up of her ultrasound and endometrial biopsy results she had an episode of bleeding for 15 days and it was under being because it it never happened before for her. The bleeding has stopped now. I reviewed the results of the endometrial biopsy which are negative for any atypia or endometrial cancer and the ultrasound which showed normal endometrial lining and a minimally complex ovarian cyst which could be followed up on in 3 months. Patient had her tubes tied and she did have a Mirena way back about 20 years ago and it was causing her some cramping so it was removed at the time I discussed with her that that would be 1 possible way of controlling periods if she either wished to or if the irregular bleeding returned and she wanted to manage it. She said she will think about it if it occurs again but for now she will just see what happens. She went to physical therapy and has been doing the Kegel exercises and thinks there is some improvement but she still does need to wear panty liners because her work environment and sometime she is not able to run to the bathroom when she wishes she could. She is continuing to work on it. Because of wearing panty liners and also because she had to wear the pads for the 15 days she thinks she has a mild yeast infection and would like another prescription for Diflucan which I will send to her pharmacy. Radiology recommended possible 3 month follow-up ultrasound so I will put in an order for that and she and I can have a tele visit after that. I also reviewed her lab work which was also done and was normal Orders: Orders US pelvic and transvaginal 3 Months N83.299 - Other ovarian cyst, unspecified side Medications: New fluconazole may repeat second dose 72 hrs after first dose if symptoms persist 150 mg PO Q3D 2 doses 2 tabs 2RF Coding Level of Care Code Est Pt Level 3 (18441) Diagnoses Abnormal uterine bleeding (AUB) N93.9 Yeast infection involving the vagina and surrounding area B37.31 Ovarian cyst, complex N83.299
[2023-05-13 10:23] VITALS: BP 110/62; BMI 21.5
== END 2023-05-13 10:40 | disposition home or self-care (01) ==
LOC: HO.HWS 10:11
PROVIDERS: PCP Internal Medicine; Visit Provider Advanced Practice Midwife
DX: N93.9 Abnormal uterine and vaginal bleeding, unspecified (principal); B37.31 Acute candidiasis of vulva and vagina; N83.299 Other ovarian cyst, unspecified side
CPT/HCPCS: 99213

== ENCOUNTER → 2023-05-13 10:10 | Outpatient (BNVA) | payer OTHER, SELFPAY | PROVIDERS: PCP Internal Medicine; Visit Provider Advanced Practice Midwife | DX: N93.9 Abnormal uterine and vaginal bleeding, unspecified (principal); N83.299 Other ovarian cyst, unspecified side; B37.31 Acute candidiasis of vulva and vagina | CPT/HCPCS: 99212 ==

== ENCOUNTER 2023-08-13 11:06 | Outpatient (REF) | payer OTHER, SELFPAY ==
--- NOTE | ~2023-08-13 | US_ITS ---
EXAMINATION: US PELVIS CLINICAL INFORMATION: Ovarian cyst; the last menstrual period was on 06/04/2023. COMPARISON: Pelvic ultrasound dated 04/25/2023. TECHNIQUE: Ultrasound of the pelvis is performed using both transabdominal and transvaginal transducers along with Doppler. Transvaginal imaging is performed due to inadequate visualization transabdominally. FINDINGS: Uterus: The uterus is retroverted and retroflexed. The uterus measures 9.0 x 4.9 x 5.7 cm. The double wall endometrial thickness is 9 mm. There is a small amount nonspecific free fluid in the endometrial canal. The uterus is smooth in contour and has normal myometrial echogenicity. No visible fibroid. Adnexa: Both ovaries are visualized. There is normal color flow to the adnexa. There is no ovarian torsion. There is no pelvic ascites or fluid collection. Right ovary measures 1.7 x 1.0 x 0.9 cm, volume 0.8 mL. Left ovary measures 2.9 x 1.5 x 2.6 cm, volume 5.9 mL. The left ovary contains a 2.0 x 1.3 x 1.9 cm dominant simple follicle, for which no imaging follow-up is recommended. US/US pelvic and transvaginal IMPRESSION: 1. A 2.0 cm simple left ovarian dominant follicle is incidentally noted, which requires no imaging follow-up. 2. There is a small amount of nonspecific free fluid in the cul-de-sac. 3. There is a small amount of nonspecific free fluid in the endometrial canal.
== END 2023-08-13 11:07 | disposition home or self-care (01) ==
LOC: HO.US 11:06
PROVIDERS: PCP Internal Medicine; Visit Provider Advanced Practice Midwife
DX: N83.299 Other ovarian cyst, unspecified side (principal)
CPT/HCPCS: 76830; 76856

== ENCOUNTER 2023-08-27 10:28 | Outpatient (AMB) | payer OTHER, SELFPAY ==
[2023-08-27 10:38] VITALS: BP 110/64; BMI 21.5
--- NOTE | 2023-08-27 10:38 | A.OFFVIS_ITS ---
Intake Vital Signs 08/27/23 10:38 Height 5 ft 7 in Weight 137 lb BMI 21.5 BP 110/64 Intake Visit Reasons: ultrasound follow up Smt Operator Required: No Allergies ethinyl estradiol [From Seasonale (91)] Allergy (Verified 08/27/23 10:40) Nasal congestion levonorgestrel [From Seasonale (91)] Allergy (Verified 08/27/23 10:40) Nasal congestion Is last menstrual period known: Yes Last menstrual period: 06/04/23 Post menopausal: No HPI ultrasound follow up HPI Details Is here to discuss her recent follow-up ultrasound results and her irregular bleeding patterns recently. We have already done an initial ultrasound and an endometrial biopsy which was benign. Discussion has taken place about repeating the follow-up ultrasound because of of finding of a cyst on the initial ultrasound. And we reviewed that today and today's review of the normal ultrasound was done and there is no indication for any follow-up with that. We have already discussed the possibility of a Mirena IU S to deal with her irregular bleeding patterns. Her menses could sometimes be normal for 7 days and sometimes it lingers on for longer so and even if it is just spotting it makes her need to wear panty liner then she gets a yeast infection so she would be interested in trying a Mirena to see if it could improve the situation. She is going to call when she starts her. Which has not come regularly since May. Hopefully we can get her in to insert a Mirena IU S at the start of her next period. [facility] Medical History History of migraine Gallbladder & bile duct stone with obstruction Asthma Surgical History History of knee surgery History of placement of ear tubes History of cholecystectomy History of bilateral tubal ligation Family History Sister Breast cancer Maternal Aunt Colon cancer Maternal Uncle Colon cancer Social History Alcohol intake: never Gender identity: Female Female Reproductive History Menstrual Age of Menarche: 15 Date of last menstrual period: 06/04/23 control method: other (tubal ligation) Physical Exam Vital Signs: Last Vital Signs BP 110/64 08/27/23 10:38 BMI result Body Mass Index 21.5 Results Reviewed Results Reviewed: Patient: Charline Palumbo MR#: [id number] : 1975 Acct:[id number] Age/Sex: 48 / F ADM Date: 08/13/23 Loc: HO.US Attending Dr: Carmita Torres CNM Ordering Physician: Carmita Torres CNM Date of Service: 08/13/23 Procedure(s): US pelvic and transvaginal Accession Number(s): [id number] cc: Kary Acuña MD; Carmita Torres CNM~ EXAMINATION: US PELVIS CLINICAL INFORMATION: Ovarian cyst; the last menstrual period was on 06/04/2023. COMPARISON: Pelvic ultrasound dated 04/25/2023. TECHNIQUE: Ultrasound of the pelvis is performed using both transabdominal and transvaginal transducers along with Doppler. Transvaginal imaging is performed due to inadequate visualization transabdominally. FINDINGS: Uterus: The uterus is retroverted and retroflexed. The uterus measures 9.0 x 4.9 x 5.7 cm. The double wall endometrial thickness is 9 mm. There is a small amount nonspecific free fluid in the endometrial canal. The uterus is smooth in contour and has normal myometrial echogenicity. No visible fibroid. Adnexa: Both ovaries are visualized. There is normal color flow to the adnexa. There is no ovarian torsion. There is no pelvic ascites or fluid collection. Right ovary measures 1.7 x 1.0 x 0.9 cm, volume 0.8 mL. Left ovary measures 2.9 x 1.5 x 2.6 cm, volume 5.9 mL. The left ovary contains a 2.0 x 1.3 x 1.9 cm dominant simple follicle, for which no imaging follow-up is recommended. US/US pelvic and transvaginal IMPRESSION: 1. A 2.0 cm simple left ovarian dominant follicle is incidentally noted, which requires no imaging follow-up. 2. There is a small amount of nonspecific free fluid in the cul-de-sac. 3. There is a small amount of nonspecific free fluid in the endometrial canal. Dictated By: Jaime Mathis MD Signed By: <Electronically signed by Jaime Mathis MD in OV> 08/14/23 1828 DD/ 1121 TD/TT: Big Machine Consultant: GORDON Name: Charline Palumbo Age/Sex: 47/F Attending: Carmita Torres CNM : 1975 Submitted by: Carmita Torres CNM Copies to: Kary Acuña MD MR #: [id number] Status: DEP REF Collected: 04/23/23 Location: [facility] Received: 04/24/23 Diagnosis Endometrium, biopsy: Benign dyssynchronous endometrium with proliferative to early secretory to mid secretory features, focal inactive glands, and focal breakdown; no atypia or carcinoma. Clinical History AUB Microscopic Description Microscopic sections reviewed. Material Received EMB Gross Description Received in formalin labeled ?EMB? is a 2.0 x 1.5 x 0.5 cm aggregate of mucus, blood and multiple congested and hemorrhagic maroon-brown irregular and tubular cast fragments of tissue, submitted in toto in cassette A. CEDS Copies To Kary Acuña MD [address] [place] [phone] Carmita Torres CNM [address] [place] [address] Dr. Kay [address] [place] [phone] NOTE: Unless otherwise stated, all tissue is formalin-fixed and paraffin- embedded. Some or all of the immunohistochemical tests reported herein may have been developed and their performance characteristics determined by [facility]. They have not been cleared or approved by the U.S. Food and Drug Administration (FDA). However, the FDA has determined that such clearance or approval is not necessary. This laboratory is certified under the Clinical Laboratory Improvement Amendments of 1988 (CLIA) as qualified to perform hig Assessment & Plan Assessment & Plan (1) Ovarian cyst, complex: Comment: resolved Code(s): N83.299 - Other ovarian cyst, unspecified side (2) Abnormal uterine bleeding (AUB): Code(s): N93.9 - Abnormal uterine and vaginal bleeding, unspecified Plan Is here to discuss her recent follow-up ultrasound results and her irregular bleeding patterns recently. We have already done an initial ultrasound and an endometrial biopsy which was benign. Discussion has taken place about repeating the follow-up ultrasound because of of finding of a cyst on the initial ultrasound. And we reviewed that today and today's review of the normal ultrasound was done and there is no indication for any follow-up with that. We have already discussed the possibility of a Mirena IU S to deal with her irregu lar bleeding patterns. Her menses could sometimes be normal for 7 days and sometimes it lingers on for longer so and even if it is just spotting it makes her need to wear panty liner then she gets a yeast infection so she would be interested in trying a Mirena to see if it could improve the situation. She is going to call when she starts her. Which has not come regularly since May. Hopefully we can get her in to insert a Mirena IU S at the start of her next period. Coding Level of Care Code Est Pt Level 3 (77185) Diagnoses Ovarian cyst, complex N83.299 Abnormal uterine bleeding (AUB) N93.9
== END 2023-08-27 11:40 | disposition home or self-care (01) ==
PROVIDERS: PCP Internal Medicine; Visit Provider Advanced Practice Midwife
DX: N83.299 Other ovarian cyst, unspecified side (principal); N93.9 Abnormal uterine and vaginal bleeding, unspecified
CPT/HCPCS: 99213

== ENCOUNTER → 2023-08-27 10:28 | Outpatient (BNVA) | payer OTHER, SELFPAY | PROVIDERS: PCP Internal Medicine; Visit Provider Advanced Practice Midwife | DX: N93.9 Abnormal uterine and vaginal bleeding, unspecified (principal); N83.299 Other ovarian cyst, unspecified side | CPT/HCPCS: 99212 ==

== ENCOUNTER 2023-12-02 10:01 | Outpatient (AMB) | payer OTHER, SELFPAY ==
--- NOTE | 2023-12-02 10:08 | MHC.OFFVIS ---
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 Patient reports on noticing elbow pain on Mothers day when she was shifting her car into park. Her elbow pain increased as well as swelling and numbness in her middle finger and thumb. States feeling a pulling sensation in her elbow and frequently drops items. Seen by her PCP who first prescribed naproxen then ibuprofen with no relief. She presented back to her PCP who then prescribed gabapentin. Finds no relief with elbow brace, states arm feels better with elevation. No other tx. Allergies No Known Allergies Allergy (Verified 12/02/23 10:09) Medication List - Last Reconciled 12/02/23 by Carri Callaway MD albuterol sulfate 90 mcg/actuation inhalation fluconazole 150 mg PO Q3D 2 doses fluticasone propionate 50 mcg/actuation 1 spray intranasal BID gabapentin 100 mg PO BID loratadine 10 mg PO DAILY HPI Comments Details: [place] soreness, sudden pain on right elbow last Mother's day. Pointing to right lateral elbow, shooting to fingers. Numbness/tingling to thumb and middle finger, right. She is right handed. Treatment done so far: NSAIDs, gabapentin She had a tennis elbow, but it hurt more. X-ray done at [facility] per patient, told to be normal. 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 MSK: Inspection reveals appropriate head and neck positioning. No pain with palpation over the neck musculature. Cervical ROM was full. Spurling's sign negative. Bilateral shoulder ROM WNL. No ligamentous laxity or crepitance. No increased effusion. Hawkin's test is negative. No intrinsic hand weakness noted. No atrophy noted. Wendy test negative. Carpal compression test positive right. Tinel sign positive elbow right. Tender along the right common extensor tendons proximal to the lateral epicondyle. No effusion or swelling. Increased pain on lateral epicondyle with resisted wrist extension. Strength is 5/5 in all muscle groups tested. No increased tone noted. Neurological: Neurologic examination of the upper and lower extremities was nonfocal with intact sensation, muscle stretch reflexes and without focal motor deficits . Dick?s negative bilaterally. Gait is non-antalgic without loss of balance. Assessment & Plan Assessment & Plan (1) Right tennis elbow: Code(s): M77.11 - Lateral epicondylitis, right elbow Category: Medical Plan Encouraged to still wear the tennis elbow splint/counterforce brace. She could bring it tomorrow so I can take a look and see why it is hurting her more. Continue to ice but without the splint. We discussed option of injection. She was eager to proceed. We will schedule tomorrow. She also has some mild signs of carpal tunnel. We will address in the future. Possible EMG. Assessment and plan discussed with patient, and patient was agreeable. All questions were answered thoroughly. Carri Callaway MD, DARSHANA Board Certified, [place] [employer] and Rehabilitation (ABPMR) Board Certified, [place] [employer] Electrodiagnostic Medicine (ABEM) Coding Level of Care Code New Pt Level 3 (98377) Diagnoses Right tennis elbow M77.11
[2023-12-02 10:13] VITALS: BMI 21.5
== END 2023-12-02 10:40 | disposition home or self-care (01) ==
PROVIDERS: PCP Internal Medicine; Visit Provider Physical Medicine & Rehabilitation
DX: M77.11 Lateral epicondylitis, right elbow (principal)
CPT/HCPCS: 99203

== ENCOUNTER → 2023-12-02 10:01 | Outpatient (BNVA) | payer OTHER, SELFPAY | PROVIDERS: PCP Internal Medicine; Visit Provider Physical Medicine & Rehabilitation | DX: M77.11 Lateral epicondylitis, right elbow (principal) | CPT/HCPCS: 99202 ==

== ENCOUNTER 2023-12-03 09:56 | Outpatient (AMB) | payer OTHER, SELFPAY ==
--- NOTE | 2023-12-03 10:04 | MHC.OFFVIS ---
Intake Visit Reasons: O/V Right elbow injection per RB Intake Note: Charline is a 48 year old right hand dominant female who presents today for a right lateral epicondylitis injection Allergies No Known Allergies Allergy (Verified 12/03/23 10:07) Medication List - Last Reconciled 12/03/23 by Carri Callaway MD albuterol sulfate 90 mcg/actuation inhalation fluconazole 150 mg PO Q3D 2 doses fluticasone propionate 50 mcg/actuation 1 spray intranasal BID loratadine 10 mg PO DAILY HPI Comments Details: Here for a scheduled injection [facility] Medical History History of migraine Gallbladder & bile duct stone with obstruction Asthma Surgical History History of knee surgery History of placement of ear tubes History of cholecystectomy History of bilateral tubal ligation Family History Sister Breast cancer Maternal Aunt Colon cancer Maternal Uncle Colon cancer Social History (Updated 12/02/23 @ 10:10 by EILEEN Anaya) Alcohol intake: never Patient Tobacco Use Status: Never used Tobacco Current occupational status: employed 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 Patient lice on supine with elbow on the table at right angle and forearm supinated. Tender area along common extensor tendon slightly distal to lateral epicondyle identified. Area prepped in sterile manner. 25 gauge 0.5 in. needle inserted at tender area, injecting solution containing 10 mg Kenalog and 0.75 mL 2% lidocaine. Patient tolerated procedure well without complications. [id number] Tendon Origin/Insertion Injection All charges added?: Procedure code (CPT) selection complete Assessment & Plan Assessment & Plan (1) Right tennis elbow: Code(s): M77.11 - Lateral epicondylitis, right elbow Category: Medical Plan Tolerated procedure well without complications. Instructions given. We looked at the counterforce brace that she has, she may remove the plastic squared that is irritating her. To wear this as much as possible during the day. Referring her to OT. Assessment and plan discussed with patient, and patient was agreeable. All questions were answered thoroughly. Follow up 3 months. Carri Callaway MD, DARSHANA Board Certified, [place] [employer] and Rehabilitation (ABPMR) Board Certified, [place] Board [employer] Electrodiagnostic Medicine (ABEM) Orders: Orders AMB Injection-Tendon Today M77.11 - Lateral epicondylitis, right elbow OT Evaluation and Treatment Today M77.11 - Lateral epicondylitis, right elbow Coding Level of Care Code Procedure Only Diagnoses Right tennis elbow M77.11 CPT Codes Tendon Injection - Tendon Injection 2: [id number] Tendon Origin/Insertion Injection ([id number])
== END 2023-12-03 12:06 | disposition home or self-care (01) ==
PROVIDERS: PCP Internal Medicine; Visit Provider Physical Medicine & Rehabilitation
DX: M77.11 Lateral epicondylitis, right elbow (principal)
CPT/HCPCS: 20551

== ENCOUNTER → 2023-12-03 09:56 | Outpatient (BNVA) | payer OTHER, SELFPAY | PROVIDERS: PCP Internal Medicine; Visit Provider Physical Medicine & Rehabilitation | DX: M77.11 Lateral epicondylitis, right elbow (principal) | CPT/HCPCS: 20551; J3301 ==

== ENCOUNTER → 2023-12-11 12:15 | Outpatient (BNV) | payer OTHER, SELFPAY | PROVIDERS: PCP Internal Medicine; Visit Provider Radiology Diagnostic Radiology | DX: Z12.31 Encounter for screening mammogram for malignant neoplasm of breast (principal) | CPT/HCPCS: 77063; 77067 ==

== ENCOUNTER 2023-12-11 12:17 | Outpatient (REF) | payer OTHER, SELFPAY | END 2023-12-11 12:18 | disposition home or self-care (01) | LOC: HO.MAMMO 12:17 | PROVIDERS: PCP Internal Medicine; Visit Provider Internal Medicine | DX: Z12.31 Encounter for screening mammogram for malignant neoplasm of breast (principal) | CPT/HCPCS: 77063; 77067 ==

== ENCOUNTER 2024-01-07 16:09 | Emergency (ER) | payer OTHER, SELFPAY ==
[2024-01-07 16:41] VITALS: BP 143/80; PULSE 71; RESP 16; TEMP 36.9; O2SAT 100; BMI 21.6
--- NOTE | 2024-01-07 16:41 | ED_ITS ---
HPI - General Adult General Chief complaint: Headache Stated complaint: migraine x1 week Time Seen by Provider: 01/07/24 21:10 Source: patient Mode of arrival: ambulatory Limitations: no limitations History of Present Illness ED Provider: Dr. Araceli Salazar HPI narrative: Patient comes to the emergency room complaining of a migraine headache that has been present for almost 1 week. Patient states that she has tried Excedrin and Imitrex without any significant relief. Patient does have history of migraines. Patient complaining that it started out with an aura. Patient complaining of nausea, no vomiting, mild dizziness. Patient denies any neurological deficits. Related Data Home Medications ?Medication ?Instructions ?Recorded ?Confirmed albuterol sulfate 90 mcg/actuation inhalation 10/23/20 12/03/23 aerosol inhaler fluticasone propionate 50 1 spray intranasal BID 12/20/22 12/03/23 mcg/actuation nasal spray,suspension loratadine 10 mg tablet 10 mg PO DAILY 12/20/22 12/03/23 Previous Rx's ?Medication ?Instructions ?Recorded fluconazole 150 mg tablet 150 mg PO Q3D 2 doses #2 tabs 05/13/23 ketorolac 10 mg tablet 10 mg PO Q8H PRN pain #14 tabs 01/07/24 metoclopramide HCl 5 mg tablet 5 mg PO DAILY PRN nausea and 01/07/24 (Reglan) vomiting #14 tabs Allergies Allergy/AdvReac Type Severity Reaction Status Date / Time No Known Allergies Allergy Verified 01/07/24 16:43 Review of Systems Review of Systems: Constitutional : No Weight loss, No Fever, No Chills, No Night Sweats, No Fatigue, No Malaise ENT/Mouth : No Hearing loss, No Ear Pain, No Nasal Congestion, No Sinus Pain, No Hoarseness, No sore throat, No Rhinorrhea, No Swallowing Difficulty Eyes: No Eye Pain, No Swelling, No Redness, No Foreign Body, No Discharge, complaining of right eye visual changes for about a week Cardiovascular : No Chest Pain, No SOB, No Dyspnea on Exertion, No Orthopnea, No Edema, No Palpitations Respiratory : No Cough, No Sputum, No Wheezing, No Smoke Exposure, No Dyspnea Gastrointestinal : No Nausea, No Vomiting, No Diarrhea, No Constipation, No abdominal Pain, No Hematochezia, No Melena Genitourinary : no irregular bleeding, No Dysuria, No Urinary Frequency, No Hematuria, No Urinary Incontinence, No Urgency, No Flank Pain, No Urinary Flow Changes, No Hesitancy Musculoskeletal : No joint pain, No Myalgias, No Joint Swelling Skin : No Skin Lesions, No rash Neuro : No Weakness, No Numbness, No Paresthesias, No Loss of Consciousness, complaining of a migraine headache worse on the right side, dizziness Psych : No Anxiety/Panic, No Depression, No SI/HI/AH/VH, No Social Issues, Heme/Lymph: No Bruising, No Bleeding,No Lymphadenopathy Endocrine : No Polyuria, No Polydipsia, No Temperature Intolerance [facility] Past Medical History Medical History History of migraine Gallbladder & bile duct stone with obstruction Asthma Surgical History History of knee surgery History of placement of ear tubes History of cholecystectomy History of bilateral tubal ligation Family History Family History Sister Breast cancer Maternal Aunt Colon cancer Maternal Uncle Colon cancer Social History Social History (Updated 12/02/23 @ 10:10 by EILEEN Anaya) Alcohol intake: never Patient Tobacco Use Status: Never used Tobacco Smoked in Last 30 Days: No Use of substances other than those prescribed or required for medical reasons: No Advance Directives: No Advance Directives Information Provided: No Current occupational status: employed 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 Oriented X3. Seems uncomfortable, tearful Eyes: Pupils equal, round and reactive to light. Photophobia ENT: Pharynx normal. Neck: Normal inspection. Neck supple. No lymph nodes noted. No crepitus CVS: Normal heart rate and rhythm. Pulses normal. Normal S1 and S2 Respiratory: No respiratory distress. Breath sounds normal. No Wheezing. No rales Abdomen: Soft and nontender. No rigidity. No distention. Skin: Skin warm and dry. Normal skin color. Normal skin turgor. Extremities: No lower extremity edema. No Lacerations. No Rash Neuro: Oriented X 3. No motor deficit. No sensory deficit. Moving all extremities. No slurred speech. CN 2 through 12 grossly intact Psych: calm, cooperative, normal affect Course Course Course Narrative: This is a rapid medical exam performed by Stu Urena NP: Additional HPI, ROS, PE not included below will be deferred to primary provider. Patient is a 48-year-old female with history of migraines presenting to the ED with complaint of migraine for one week. Took Imitrex and Excedrin without relief. Associated nausea, denies vomiting. Mild dizziness. Denies any new medications. Medications Administered Discontinued Medications Generic Name Dose Route Start Last Admin Trade Name Freq PRN Reason Stop Dose Admin Diphenhydramine HCl 25 mg 01/07/24 21:17 01/07/24 21:28 Diphenhydramine Hcl 50 Mg/Ml Vial IVPUSH 01/07/24 21:18 25 mg ONCE ONE Administration Sodium Chloride 1,000 mls @ 999 mls/hr 01/07/24 21:17 01/07/24 22:50 Ns IVCONT 01/07/24 22:17 Infused .Q1H1M ONE Infusion Ketorolac Tromethamine 30 mg 01/07/24 21:17 01/07/24 21:26 Ketorolac Tromethamine 30 Mg/Ml Vial IVPUSH 01/07/24 21:18 30 mg ONCE ONE Administration Metoclopramide HCl 10 mg 01/07/24 21:17 01/07/24 21:29 Metoclopramide Hcl 10 Mg/2 Ml Vial IVPUSH 01/07/24 21:18 10 mg ONCE ONE Administration Medical Decision Making Medical Decision Making MDM Narrative: -patient receiving IV fluids, Benadryl, Toradol and Reglan -patient states that she feels much better, no longer having any headache. -I discussed with the patient that she will have a prescription available to her in her pharmacy for Toradol and Reglan. And agrees with plan. Patient instructed to follow-up with her neurologist Differential Diagnosis Differential Diagnoses: The differential diagnosis associated with the presentation includes (Tension headache, migraine headache) Admission/Observation Consideration of admission/observation: Escalation of care including admission/observation considered (Given patient's length of symptoms and presentation, observation was considered) Critical Care Time Critical Care Time Critical Care Time: Yes Total Critical Care Time: 35 Attestation: I have personally provided critical care time. Time includes review of lab data, radiology results, discussion with consultants, and monitoring for potential decompensation. Intervention performed as documented. Discharge Plan Discharge Clinical Impression: Headache, migraine Patient Disposition: Home, Self-Care Instructions: Migraine Headache (ED) Additional Instructions: Please follow-up with your primary care physician tomorrow. If you have any worsening or new symptoms, please return to the emergency room or call 911 Prescriptions: New ketorolac 10 mg tablet 10 mg PO Q8H PRN (Reason: pain) Qty: 14 0RF Rx Instructions: maximum total duration of 5 days from all oral, intranasal, or parenteral formulations metoclopramide HCl [Reglan] 5 mg tablet 5 mg PO DAILY PRN (Reason: nausea and vomiting) Qty: 14 0RF Rx Instructions: Take together with ketorolac p.r.n. migraine headache No Action albuterol sulfate 90 mcg/actuation HFA aerosol inhaler inhalation loratadine 10 mg tablet 10 mg PO DAILY fluticasone propionate 50 mcg/actuation spray,suspension 1 spray intranasal BID fluconazole 150 mg tablet 150 mg PO Q3D 0 Days Qty: 2 2RF Rx Instructions: may repeat second dose 72 hrs after first dose if symptoms persist Stand Alone Forms: Work/School Release Print Language: Prydeinig
[2024-01-07 20:00] VITALS: BP 136/78; PULSE 63; RESP 15; TEMP 36.8; O2SAT 100
[2024-01-07] MEDS: Ketorolac Tromethamine 30 MG/ML VIAL IVPUSH (21:26)
[2024-01-07] MEDS: diphenhydrAMINE HCL 50 MG/ML VIAL 25 MG IVPUSH (21:28)
[2024-01-07] MEDS: Metoclopramide HCl 10 MG/2 ML VIAL IVPUSH (21:29)
[2024-01-07] MEDS: 0.9 % Sodium Chloride 1,000 ML 999 ML IVCONT (21:30)
[2024-01-07 22:00] VITALS: BP 109/72; PULSE 67; RESP 16; TEMP 36.4; O2SAT 98
[2024-01-07 23:15] VITALS: BP 107/60; PULSE 64; RESP 16; TEMP 36.4; O2SAT 99
[2024-01-07 23:22] VITALS: BP 107/60; PULSE 64; RESP 16; TEMP 36.4; O2SAT 99
== END 2024-01-07 23:23 | disposition home or self-care (01) ==
PROVIDERS: Emergency Provider Emergency Medicine; PCP Internal Medicine
DX: G43.109 Migraine with aura, not intractable, without status migrainosus (principal); R11.0 Nausea; Z79.899 Other long term (current) drug therapy
CPT/HCPCS: 96361; 96374; 96375; 99284; 99285; J1200; J1885; J2765

== ENCOUNTER 2024-03-03 09:07 | Outpatient (AMB) | payer OTHER, SELFPAY ==
--- NOTE | 2024-03-03 09:08 | MHC.OFFVIS ---
Intake Visit Reasons: O/V Right tennis elbow s/p injection 12/03/23 Intake Note: Charline is a 48 year old female who presents today for a follow up of her right tennis elbow s/p right elbow injection on 12/03/2023. Pt states she found relief from the injection for about 2 months. Pt states she would like another injection. Allergies No Known Allergies Allergy (Verified 03/03/24 09:08) Medication List - Last Reconciled 03/03/24 by Carri Callaway MD albuterol sulfate 90 mcg/actuation inhalation fluticasone propionate 50 mcg/actuation 1 spray intranasal BID ketorolac 10 mg PO Q8H PRN loratadine 10 mg PO DAILY metoclopramide HCl (Reglan) 5 mg PO DAILY PRN HPI Comments Details: Patient seen last November for medial epicondylitis, common extensor tendinitis, right. Underwent steroid injection which resolved pain for at least 2 months. Pain started coming back a few weeks ago. Denies any fever. 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 MSK: Inspection reveals appropriate head and neck positioning. Tender along the right common extensor tendons proximal to the lateral epicondyle. Feels warm to touch and appears more swollen than previously seen. No redness. Increased pain on lateral epicondyle with resisted wrist extension. No swelling on olecranon. No tenderness over medial epicondyle. Strength is 5/5 in all muscle groups tested. No increased tone noted. Neurological: Neurologic examination of the upper and lower extremities was nonfocal with intact sensation, muscle stretch reflexes and without focal motor deficits . Dick?s negative bilaterally. Gait is non-antalgic without loss of balance. Assessment & Plan Assessment & Plan (1) Right tennis elbow: Code(s): M77.11 - Lateral epicondylitis, right elbow Category: Medical Plan Area of common extensor tendons as it attaches to the right lateral epicondyle feels warm and appears slightly swollen. Not red. Patient has no fever. Recommend to wear long sleeves especially at work. Avoid trauma. Wear counterforce brace during the day, especially at work. She has been taking ibuprofen 600 mg as needed. Advised to take 800 mg t.i.d. for 7 days. Discussed side effects. Prescription sent. After 1 week of oral ibuprofen, she can apply topical diclofenac gel up to 3 times a day. Discussed that frequent steroid injection might cause tendon injury, would not recommend at this time. Assessment and plan discussed with patient, and patient was agreeable. All questions were answered thoroughly. Follow up 4 weeks. Carri Callaway MD, DARSHANA Board Certified, [place] [employer] and [employer] (ABPMR) Board Certified, [place] [employer] Electrodiagnostic [employer] (ABEM) Medications: New ibuprofen No to take with any other NSAIDs like ketorolac 800 mg PO TID 21 tabs 0RF pain diclofenac sodium 1% apply to right elbow up to 3 times a day 2 grams topical QID 100 grams 0RF Coding Level of Care Code Est Pt Level 4 (04077) Diagnoses Right tennis elbow M77.11
== END 2024-03-03 09:31 | disposition home or self-care (01) ==
PROVIDERS: PCP Internal Medicine; Visit Provider Physical Medicine & Rehabilitation
DX: M77.11 Lateral epicondylitis, right elbow (principal)
CPT/HCPCS: 99214

== ENCOUNTER → 2024-03-03 09:07 | Outpatient (BNVA) | payer OTHER, SELFPAY | PROVIDERS: PCP Internal Medicine; Visit Provider Physical Medicine & Rehabilitation | DX: M77.11 Lateral epicondylitis, right elbow (principal) | CPT/HCPCS: 99212 ==

== ENCOUNTER 2024-06-18 09:57 | Outpatient (AMB) | payer OTHER, SELFPAY ==
--- NOTE | 2024-06-18 09:58 | MHC.OFFVIS ---
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 She never found it possible to come in when she had her menses and it was difficult to schedule with the office. She might be open to that if it would happen. She believes she is up-to-date on mammograms her other medical problems are her migraines that she has been finding were worse over time and have had her go to the emergency room on occasion. She says she is up-to-date on her mammograms as well. 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 Gender identity: Female Female Reproductive History Menstrual Age of Menarche: 15 Duration of menses: 3-5 days Date of last menstrual period: 06/12/24 Total pregnancies: 3 Full term: 3 Date of last pap smear: 12/20/22 (negative hpv, negative pap smear) History of abnormal pap smear: Yes History of STI: Yes (Chlamydia) Date of Mammogram: 12/11/23 (bi rad 1) Physical Exam Vital Signs: Last Vital Signs BP 96/68 06/18/24 10:01 BMI result Body Mass Index 21.0 Const General: healthy appearing, comfortable, no acute distress, well developed and alert Nutritional Appearance: average body habitus Orientation/consciousness: patient oriented x3 Limitations: no limitations HEENT Head: Yes normocephalic Neck Neck: Yes normal visual inspection Chest Chest palpation & inspection: normal inspection of the chest Breast/axilla inspection: normal inspection of the breasts and normal inspection of the axillae Breast/axilla palpation: normal palpation of the breasts and normal palpation of the axillae Resp Effort & Inspection: normal respiratory effort GI Inspection: Yes normal to inspection, No Abdominal wall edema and No distended Palpation (GI): Soft to palpation and nontender Other: Within normal limits vagina pink some elio menopausal thin mucosal changes cervix multiparous long close thick mobile nontender uterus small retroverted mobile nontender adnexa nontender not enlarged patient found it difficult to recreate. Teaching done on Kegel's she had been referred to physical therapy in past but found it a little weird. Patient has hemorrhoid is not swollen or thrombosed or reddened or inflamed in anyway it is small puckering of skin at this point. General: Yes bladder normal to palpation External Female Exam: normal external appearance and normal appearance of the urethra Speculum Exam - Vagina: normal appearance of the vagina, normal palpation and normal vaginal discharge Speculum Exam - Cervix: normal appearance of the cervix, normal palpation and nontender Bimanual exam- vagina & uterus: normal bimanual exam, normal palpation, uterine size normal, bladder normal to palpation, consistency normal, normal palpation, uterine mobility normal, uterine shape normal, No Cervical tenderness present, non-tender and no cervical motion tenderness Bimanual Exam- Adnexa, other: normal adnexae, no masses, normal and No adnexal tenderness Neuro General: patient oriented x3 Results Reviewed Results Reviewed: Name: Charline Palumbo Age/Sex: 47/F Attending: Carmita Torres CNM : 1975 Submitted by: Carmita Torres CNM Copies to: Kary Acuña MD MR #: [id number] Status: DEP REF Collected: 04/23/23 Location: [facility] Received: 04/24/23 Diagnosis Endometrium, biopsy: Benign dyssynchronous endometrium with proliferative to early secretory to mid secretory features, focal inactive glands, and focal breakdown; no atypia or carcinoma. Clinical History AUB Microscopic Description Microscopic sections reviewed. Material Received EMB Gross Description Received in formalin labeled ?EMB? is a 2.0 x 1.5 x 0.5 cm aggregate of mucus, blood and multiple congested and hemorrhagic maroon-brown irregular and tubular cast fragments of tissue, submitted in toto in cassette A. CEDS Copies To Kary Acuña MD [address] [place] [address] [phone] Carmita Torres [address] Kay [address] [place] [address] [phone] NOTE: Unless otherwise stated, all tissue is formalin-fixed and paraffin-embedded. Some or all of the immunohistochemical tests reported herein may have been developed and their performance characteristics determined by [facility]. They have not been cleared or approved by the U.S. Food and Drug Administration (FDA). However, the FDA has determined that such clearance or approval is not necessary. This laboratory is certified under the Clinical Laboratory Improvement Amendments of 1988 (CLIA) as qualified to perform high complexity clinical laboratory testing. Electronically Signed By: Nirali Garcia 04/25/23 2521 Patient: Charline Palumbo Age/Sex: 47/F MR#: [id number] Page 1 of 1 Name: Charline Palumbo Age/Sex: 47/F Attending: Carmita Torres CNM : 1975 Submitted by: Carmita Torres CNM Copies to: MR #: [id number] Status: DEP REF Collected: 12/20/22 Location: [facility] Received: 12/24/22 Interpretation Satisfactory for evaluation. Negative for intraepithelial lesion or malignancy. HPV mRNA E6/E7: NOT DETECTED This assay detects E6/E7 viral messenger RNA (mRNA) from 14 high-risk HPV types (16, 18, 31, 33, 35, 39, 45, 51, 52, 56, 58, 59, 66, 68) HPV testing performed by [facility], [place], [place]. See reference laboratory pion of the EMR for entire report. Clinical Information LMP: 12/10/22 Previous PAP test: 12/14/21, WNL Material Received ThinPrep-Cervical Electronically Signed By: AI Hart (ASCP) 01/01/23 1343 The Pap Test is a screening procedure with the inherent possibility of both false negative and false positive results. Results should be interpreted in the context of historic and current clinical findings. Reliability of the Pap Test is enhanced by performing the test on a regular repetitive basis. Patient: Charline Palumbo Age/Sex: 47/F MR#: [id number] Page 1 of 1 Assessment & Plan Assessment & Plan (1) Well woman exam with routine gynecological exam: Code(s): Z01.419 - Encounter for gynecological examination (general) (routine) without abnormal findings Category: Medical (2) Hx of abnormal cervical Pap smear: Comment: hx of abnormals over years...../// pap done 12/13/21= negative with negative HPV; 12/20/2022 Pap is negative with negative HPV. Code(s): Z87.42 - Personal history of other diseases of the female genital tract Category: Medical (3) Family history of breast cancer in first degree relative: Comment: sister dec of breast CA, before brca testing done pt and neice BRCA neg, gets reg mammograms Code(s): Z80.3 - Family history of malignant neoplasm of breast Category: Medical (4) Abnormal uterine bleeding (AUB): Code(s): N93.9 - Abnormal uterine and vaginal bleeding, unspecified Category: Medical (5) Potential exposure to STD: Code(s): Z20.2 - Contact with and (suspected) exposure to infections with a predominantly sexual mode of transmission Category: Medical (6) Hemorrhoids: Comment: Not inflamed, thrombosed, or enlarged. Code(s): K64.9 - Unspecified hemorrhoids Category: Medical (7) Pelvic floor weakness: Comment: Has been referred PT in past, found it weird reinstructed on Kegel's today. Code(s): N81.89 - Other female genital prolapse Category: Medical Plan -----Discussed in this visit the following: healthy balanced diet, regular and consistent exercise, getting recommended health screens, doing the best she can for her particular health concerns, kegel exercises, pap smear screening and followup recommendations, mammography screening and SBE, normal changes in cycles in her life stage--- . Discussed all of her issues. We will make another attempt to have her scheduled to place a Mirena when she has the beginning of her period. Discussed how it maybe helpful with her abnormal bleeding pattern. Reviewed Carol's in detail she has been to PT in the past and did not find it all that helpful. Reviewed how to do them again and gave her a handout and suggest she do them several times a day and the imagine herself tightening muscles that control just the urine flow and vagina and pull upwards and hold for several seconds. Hemorrhoids do not seem to be inflamed or enlarged at this time and discussed typical comfort measures such as preparation H and soft wipes which she uses. Avoiding constipation is partida. I do not think there the point where she needs to consider surgical evaluation. Orders: Orders Bacterial Vaginosis Panel Today Z01.419 - Encounter for gynecological examination (general) (routine) without abnormal findings CT NG by PCR Today Z01.419 - Encounter for gynecological examination (general) (routine) without abnormal findings Coding Level of Care Code Est Pt Prev Care 40-64y(11148) Diagnoses Well woman exam with routine gynecological exam Z01.419 Hx of abnormal cervical Pap smear Z87.42 Family history of breast cancer in first degree relative Z80.3 Abnormal uterine bleeding (AUB) N93.9 Potential exposure to STD Z20.2 Hemorrhoids K64.9 Pelvic floor weakness N81.89
[2024-06-18 10:01] VITALS: BP 96/68; BMI 21.0
== END 2024-06-18 10:57 | disposition home or self-care (01) ==
PROVIDERS: PCP Internal Medicine; Visit Provider Advanced Practice Midwife
DX: Z01.419 Encounter for gynecological examination (general) (routine) without abnormal findings (principal)
CPT/HCPCS: 99396; 99459

== ENCOUNTER 2024-06-18 09:57 | Outpatient (REF) | payer OTHER, SELFPAY ==
[2024-06-19 05:20] LABS: CT PCR NOT DETECTED (Not Detect.); NG PCR NOT DETECTED (Not Detect.)
[2024-06-19 14:46] LABS: Bacterial Vaginosis PCR NEGATIVE (Negative); Candida Group PCR NOT DETECTED (Not Detect); Candida glab krusei PCR NOT DETECTED (Not Detect); Trichomonas vaginalis PCR NOT DETECTED (Not Detect)
== END 2024-06-18 09:58 | disposition home or self-care (01) ==
LOC: HO.LNP 09:57
PROVIDERS: PCP Internal Medicine; Visit Provider Advanced Practice Midwife
DX: Z01.419 Encounter for gynecological examination (general) (routine) without abnormal findings (principal); Z87.42 Personal history of other diseases of the female genital tract; Z80.3 Family history of malignant neoplasm of breast; N93.9 Abnormal uterine and vaginal bleeding, unspecified; Z20.2 Contact with and (suspected) exposure to infections with a predominantly sexual mode of transmission; K64.9 Unspecified hemorrhoids; N81.89 Other female genital prolapse
CPT/HCPCS: 81515; 87491; 87591; 99396; 99459

== ENCOUNTER 2024-09-22 13:55 | Outpatient (AMB) | payer OTHER, SELFPAY ==
--- NOTE | 2024-09-22 13:51 | MHC.OFFVIS ---
Vital Signs 09/22/24 13:52 Height 5 ft 7 in Weight 144 lb BMI 22.6 BP 110/70 Intake Visit Reasons: Amenorrhea Acquisition Professional Required: No Acquisition Professional Services: Acquisition Professional Present Information Interpreted: clinical only Manufacturing Engineering Professor: Manufacturing Engineering Professor Present Allergies No Known Allergies Allergy (Verified 09/22/24 13:52) Is last menstrual period known: No (since June, no period) Do you need a note to return to daycare/school/sports/work: No HPI HPI Amenorrhea: Details: Patient had had episode of abnormal bleeding in May and we evaluated after that including ultrasound and endometrial biopsy which was negative. She has not had since June. We had discussed placing a Mirena when she did get a period but it has never come. She is not getting hot flashes and she denies any other secondary symptoms of menopause such as vaginal dryness or any other issues she says if anything she is often cold but not having any hot flashes. She does feel her breast tender as if she is going to get her. But that is been happening every month and then it does not come. 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 Assessment & Plan Assessment & Plan (1) Amenorrhea, secondary: Code(s): N91.1 - Secondary amenorrhea Category: Medical (2) Perimenopause: Code(s): N95.1 - Menopausal and female climacteric states Category: Medical Plan Discussed symptoms of the last several months and discussed the possibility of elio menopause menopause. Discussed arranging for FSH and TSH and I added in a prolactin level as well. And if these levels are normal she could then go ahead and start the Provera medication for 10 days and when she stops it expect to have a heavy menses. We will do test today just to be sure. If she is not yet menopausal then consideration to the Mirena could still be in play. Discussed the range of menopausal symptoms her mother had a hysterectomy in her 40s so it is hard to say when her mother would have gone through natural menopause. Orders: Orders AMB HCG Urine Test Today Z32.02 - Encounter for test, result negative Follicle Stimulating Hormone Today N91.1 - Secondary amenorrhea Thyroid Stimulating Hormone Today N91.1 - Secondary amenorrhea Prolactin Today N91.1 - Secondary amenorrhea Medications: New medroxyprogesterone (Provera) If labs within normal limits start medication. Expect menses after course. 10 mg PO DAILY 10 tabs 0RF Coding Level of Care Code Est Pt Level 3 (78971) Diagnoses Amenorrhea, secondary N91.1 Perimenopause N95.1
[2024-09-22 13:52] VITALS: BP 110/70; BMI 22.6
--- OUTSIDE RECORDS SUMMARY | 2024-09-22 16:11 | XMS_ITS | Clinical Summary ---
Author Organization [address] [place] [address] [place] [phone] Phone Care Team Providers Care Culturist Name Role Phone Anabel De Santiago MD Primary Care Pr ovider Allergies Active Allergy Reactions Criticality Noted Date Comments Other 10/08/2007 Seasonal Allergies Medications ibuprofen (ADVIL,MOTRIN) 600 mg tablet Take 1 Tablet by mouth every 6 hours as needed for Pain. 4 Active SUMAtriptan (IMITREX) 50 mg tablet Take 50mg PO at first sign of headache; may repeat a dose after 2 hours, if needed. Max daily dose: 100 mg 4 Active fluticasone propionate (FLONASE) 50 mcg/actuation nasal spray 1 [place] by Nasal route 2 Times Daily. 4 Active magnesium oxide (MAG-OX) 400 mg (241.3 elemental magnesium) tablet Take 1 Tablet by mouth daily. 4 Active loratadine-pseu doephedrine (CLARITIN-D 12-hour) 5-120 mg per 12 hr tablet Take 1 Tablet by mouth 2 times daily. 4 Active albuterol HFA (Ventolin HFA) 90 mcg/actuation inhaler Inhale 2 Puffs into the lungs every 4 hours as needed for Cough, Wheezing or Shortness of Breath. 4 Active olopatadine (PATANOL) 0.1 % ophthalmic solution Place 1 Drop into both eyes 2 times daily as needed for Allergies (seasonal). 3 Active loratadine (CLARITIN) 10 mg tablet Take 1 Tablet by mouth daily. 3 Active Active Problems Problem Noted Date Diagnosed Date COVID-19 virus detected 06/04/2024 Postcholecystectomy diarrhea 03/20/2020 Seasonal allergies 10/22/2012 Asthma 12/14/2009 Allergic conjunctivitis 12/14/2009 Headache 10/31/2005 Vasodepressor syncope 10/31/2005 Encounters Date Type Department Care Team Description 07/13/2024 Telephone Adult Medicine [address] [phone] Anabel De Santiago MD Sore Throat; Cough; Nasal Congestion from Last 3 Months Immunizations Name Administration Dates Next Due Influenza Quadravalent, MDCK , 0.5ml, preservative free (Flucelvax) 6mo and older 07/08/2022,03/26/2021,03/20/2020 Influenza Quadravalent, MDCK , 0.5ml, with preservative (Flucelvax) 6mo and older 02/19/2018 Influenza trivalent, 0.5mL, preservative free (Fluarix; FluLaval; Fluzone) ages 6mo and older (Afluria) 3 years and older 03/01/2010 Influenza trivalent, with pr eservative (Fluzone; Afluria) 6mo and older 04/08/2023,07/11/2016 Influenza, Unspecified 07/11/2015 Pneumococcal polysaccharide 23 valent (Pneumovax 23) 2yo and older 02/19/2018 Td Tetanus diptheria (Tdvax) 7yo and older 04/19 Tdap Tetanus diptheria acell ular pertussis (Boostrix; Adacel) 7yo and older 08/15/2008 Surgical History Surgery Date Site/Laterality Comments ADENOIDECTOMY PROCEDURE: HISTORICAL ADENOIDECTOMY CHOLECYSTECTOMY PROCEDURE: HISTORICAL CHOLECYSTECTOMY Medical History Medical History Date Comments Headache(784.0) DX:Headache(784. 0) Syncope and collapse 10/31/2005 DX:Syncope and collapse Headache(784.0) 10/31/2005 DX:Headache(784. 0) Asthma 12/14/2009 DX:Asthma Allergic conjunctivitis 12/14/2009 DX:Aller gic conjunctivitis COVID-19 virus detected DX:COVID -19 virus detected Family History Medical History Relation Name Comments Colon cancer Aunt maternal aunt No Known Problems Daughter 1 No Known Problems Daughter 2 Heart attack Father CABG Colon polyps Mother Other: Crohn's disease Sister 1 Ovarian cancer Sister 2 hysterectomy Breast cancer Sister 3 stage 4, thyro id Blindness Neg Hx Cataracts Neg Hx Glaucoma Neg Hx Macular degeneration Neg Hx Strabismus Neg Hx Relation Name Status Comments Aunt Daughter 1 Alive Daughter 2 Alive Father Alive Mother Alive Sister 1 Alive Sister 2 Alive Sister 3 Social History Tobacco Use Types Packs/Day Years Used Date Smoking Tobacco: Never Smokeless Tobacco: Never Alcohol Use Standard Drinks/Week Comments Yes 0 (1 standard drink = 0.6 oz pur e alcohol) Comments Unknown Sex and Gender Information Value Date Recorded Sex Assigned at Not on file Legal Sex Female 4:33 PM EST Gender Identity Not on file Sexual Orientation Not on file Obstetrics History Last Filed Vital Signs Vital Sign Reading Time Taken Comments Blood Pressure 120/83 01/21/2024 4:40 PM EDT Pulse 86 01/21/2024 4:40 PM EDT Temperature - - Respiratory Rate - - Oxygen Saturation - - Inhaled Oxygen Concentration - - Weight 63.5 kg (140 lb) 01/21/2024 4:40 PM EDT Height 170.2 cm (5' 7 ) 01/21/2024 4:40 PM EDT Body Mass Index 21.93 01/21/2024 4:40 PM EDT Plan of Treatment Health Maintenance Due Date Last Done Comments Breast Cancer Screening 1975 Hepatitis B Vaccines (1 of 3 - 19+ 3-dose series) 1996 Pneumococcal Vaccine: Pediatrics (0 to 5 Years) and At-Risk Patients (6 to 64 Years) (2 of 2 - PCV) 02/19/2019 02/19/2018 Colorectal Cancer Screening: Colonoscopy 05/15/2022 Social Influencers of Health Screening 05/15/2022 Cervical Cancer Screening: Pap Smear 08/15/2023 08/14/2020 COVID-19 Vaccine ( season) 2024 06/23/2021, 10/10/2020, 09/12/2020 Influenza Vaccine (#1) 2024 , 07/08/2022, 03/26/2021, Additional history exists Depression Screening 10/15/2024 10/16/2023 Cholesterol Screening (Lipid Panel) 03/26/2026 03/26/2021 DTaP,Tdap,and Td Vaccines (3 - Td or Tdap) 04/19/2029 04/19/2019, 08/15/2008 HIV Screening Completed 03/26/2021 Hepatitis C Screening Completed 03/26/2021 HIB Vaccines Aged Out No longer eligi ble based on patient's age to complete this topic HPV Vaccines Aged Out No longer eligi ble based on patient's age to complete this topic Hepatitis A Vaccines Aged Out No long er eligible based on patient's age to complete this topic IPV Vaccines Aged Out No longer eligi ble based on patient's age to complete this topic MMR Vaccines Aged Out No longer eligi ble based on patient's age to complete this topic Meningococcal ACWY Vaccine Aged Out N o longer eligible based on patient's age to complete this topic Meningococcal B Vaccine Aged Out No l onger eligible based on patient's age to complete this topic RSV Immunization Patients Under 20 months Aged Out No longer eligible based on patient's age to complete this topic Varicella Vaccines Aged Out No longer eligible based on patient's age to complete this topic Procedures Procedure Name Priority Date/Time Associated Diagnosis Comments DEPRESSION SCREENING Routine 10/16/2023 HEPATITIS C SCREENING Routine 03/26/2021 HIV SCREENING Routine 03/26/2021 LIPID PANEL Routine 03/26/2021 HM PAP SMEAR Routine 08/14/2020 from Last 3 Months or Most Recently Relevant to Health Maintenance Results * Depression Screening (10/16/2023) HM Depression Screening abstracted us Historical Provider HEALTH MAINTENANCE Final Result * HIV Screening (03/26/2021) HIV Screening abstracted us Historical Provider HEALTH MAINTENANCE Final Result * Hepatitis C Screening (03/26/2021) Hepatitis C Screening abstracted Historical Provider HEALTH MAINTENANCE Final Result * (ABNORMAL) Lipid panel (03/26/2021) Pathologist [facility] LDL/HDL Ratio 4 0 - 4 Triglycerides 361(A) 0 - 150 mg/dL Cholesterol 220(A) 0 - 200 mg/dL HDL 63 >=40 mg/dL LDL Cholesterol 85 0 - 100 mg/dL Blood Venous blood specimen / Unknown Historical Provider MD LAB BLOOD ORDERABLES Nisha l Result * Pap Smear (08/14/2020) Pathologist [facility] Pap smear no interpretation , abstracted Historical Provider HEALTH MAINTENANCE Final Result from Last 3 Months or Most Recently Relevant to Health Maintenance Insurance [employer] Care Teams Culturist Relationship Specialty Start Date End Date Anabel De Santiago MD [address] [place] [address] PCP - General 10/28/22
--- OUTSIDE RECORDS SUMMARY | 2024-09-22 16:11 | XMS_ITS | Encounter Summary ---
Author Organization [employer] [facility] Address [address] [facility] [address] [place] [address] Care Team Providers Care Manufacturing Technician Name Role Phone Unavailable Primary Care Provider Unavailabl e Encounter Details Date Type Department Care Team (Latest Contact Info) Description 10/24/2020 Abstract [facility] CONVERSIONS Dental, Provider, DDS Social History Tobacco Use Types Packs/Day Years Used Date Smoking Tobacco: Never Assessed Comments Unknown Sex and Gender Information Value Date Recorded Sex Assigned at Female 04/15/2022 10:15 AM EDT Legal Sex Female 10:15 AM EDT Gender Identity Female 04/15/2022 10:15 AM EDT Sexual Orientation Straight 04/15/2022 10 :15 AM EDT documented as of this encounter Plan of Treatment Not on file documented as of this encounter Visit Diagnoses Not on filedocumented in this encounter
--- OUTSIDE RECORDS SUMMARY | 2024-09-22 16:11 | XMS_ITS | Clinical Summary ---
Author Organization [employer] [facility], Formerly [facility] Address [address] [place] [address] 7 [place] [address] Care Team Providers Care Collar Turner Name Role Phone Unavailable Primary Care Provider Unavailabl e Allergies No known active allergies Medications Ventolin HFA 108 (90 Base) MCG/ACT inhaler INHALE 2 PUFFS INTO THE LUNGS EVERY 4 HOURS NEEDED FOR COUGH OR WHEEZING. 08/16/2022 Active Active Problems Problem Noted Date Diagnosed Date Localized gingival recession, minimal 07/02/2023 Retained dental root 04/16/2023 Social History Tobacco Use Types Packs/Day Years Used Date Smoking Tobacco: Never Smokeless Tobacco: Never Tobacco Cessation:Counseling Given: Not Answered Alcohol Use Standard Drinks/Week Comments Defer 0 (1 standard drink = 0.6 oz pur e alcohol) Comments Unknown Sex and Gender Information Value Date Recorded Sex Assigned at Female 04/15/2022 10:15 AM EDT Legal Sex Female 10:15 AM EDT Gender Identity Female 04/15/2022 10:15 AM EDT Sexual Orientation Straight 04/15/2022 10 :15 AM EDT Last Filed Vital Signs Vital Sign Reading Time Taken Comments Blood Pressure 102/68 07/02/2023 10:35 AM EST Pulse 72 07/02/2023 10:35 AM EST Temperature - - Respiratory Rate - - Oxygen Saturation - - Inhaled Oxygen Concentration - - Weight - - Height - - Body Mass Index - - Plan of Treatment Health Maintenance Due Date Last Done Comments CT Colonography 1977 Colonoscopy 1977 Colorectal Cancer Screening 1977 Depression Screening 1977 FIT DNA/Cologuard 1977 FIT 1977 FOBT 1977 HIV Screening 1977 SDOH Screening 1977 Sigmoidoscopy 1977 Alcohol/Substance Use Screening 1989 Family Planning (PISQ) 1992 Hepatitis C Screening 1995 Hepatitis B Vaccines (1 of 3 - 19+ 3-dose series) 1996 Pap Smear 1998 Cervical Cancer Screening 2007 HPV/Cotest 2007 Mammogram 2017 Dental Oral Exam 12/11/2023 06/10/2023, 04/2021, 07/03/2018, Additional history exists Dental Prophylaxis 01/01/2024 07/02/2023, 0 10/24/2020, 02/04/2018, Additional history exists COVID-19 Vaccine ( season) 2024 06/23/2021, 10/10/2020, 09/12/2020 Influenza Vaccine (#1) 2024 , 07/08/2022, 03/26/2021, Additional history exists Dental X-Ray: Bitewings 06/11/2024 06/10/20 23, 03/25/2023, 06/06/2021, Additional history exists Tobacco Screening 08/19/2024 08/20/2023 Dental X-Ray: Full Mouth 06/11/2026 023, 10/24/2020, 10/21/2014 Zoster Vaccines (1 of 2) 2027 DTaP/Tdap/Td Vaccines (3 - Td or Tdap) 04/19/2029 04/19/2019, 08/15/2008 RSV Patients and Patients Aged 60 years or older (1 - 1-dose 75+ series) 2052 Pneumococcal Vaccine: Pediatrics (0 to 5 Years) and At-Risk Patients (6 to 49) Years) Aged Out 02/19/2018 No longer eligible based on patient's age to complete this topic HIB Vaccines Aged Out No longer eligi [...] patient's age to complete this topic Meningococcal Vaccine Aged Out No nicola thomas eligible based on patient's age to complete this topic RSV under 20 months Aged Out No longe r eligible based on patient's age to complete this topic Rotavirus Vaccines Aged Out No longer eligible based on patient's age to complete this topic Procedures Procedure Name Priority Date/Time Associated Diagnosis Comments PROPHYLAXIS - ADULT Routine 07/02/2023 1 0:00 AM EST INTRAORAL - COMPLETE SERIES OF RADIOGRAPHIC IMAGES Routine 06/10/2023 8:00 AM EST Encounter for dental examination Dental caries PERIODIC ORAL EVALUATION - ESTABLISHED PATIENT Routine 06/10/2023 8:00 AM EST Encounter for dental examination Dental caries from Last 3 Months or Most Recently Relevant to Health Maintenance Insurance [facility] MEDICAID STAND ADULT
--- OUTSIDE RECORDS SUMMARY | 2024-09-22 16:11 | XMS_ITS | Clinical Summary ---
Author Organization [facility] Address [address] [place] [address] Care Team Providers Care Technician Helper Instrument Name Role Phone Unavailable Primary Care Provider Unavailabl e Source Comments PLEASE NOTE, if this patient is a minor, it may be UNLAWFUL to discuss sensitive information that is contained in these records (such as FAMILY PLANNING, MENTAL HEALTH or SUBSTANCE ABUSE) with the minor patient's parent or other person without the patient's specific authorization.[facility] Immunizations Immunization Administration Dates Next Due Moderna COVID-19 Vaccine, re d cap blue label, 12+ Primary Series 10/10/2020,09/12/2020 Social History Tobacco Use Types Packs/Day Years Used Date Smoking Tobacco: Never Assessed Social Connections Answer Date Recorded Social Connections and Isolation 0 09/12/2020 Financial Resource Strain Answer Date R ecorded Financial Resource Strain 0 2020 Stress Answer Date Recorded Stress 0 09/12/2020 Physical Activity Answer Date Recorded Physical Activity 0 09/12/2020 Food Insecurity Answer Date Recorded Food 0 09/12/2020 Transportation Needs Answer Date Record ed Transportation 0 09/12/2020 Housing Stability Answer Date Recorded Housing 0 09/12/2020 Safety and Environment Answer Date Nabeel rded Safety 0 09/12/2020 Utilities Answer Date Recorded Utilities 0 09/12/2020 Employment Answer Date Recorded Employment 0 09/12/2020 Comments Unknown Sex and Gender Information Value Date Recorded Sex Assigned at Not on file Legal Sex Female 10:59 AM PDT Gender Identity Not on file Sexual Orientation Not on file Plan of Treatment Health Maintenance Due Date Last Done Comments Anxiety Screening 1977 Diabetes Screening 1977 HPV Screening 1977 Hepatitis C Screening 1977 Lipid Screening 1977 Pap + HPV 1977 Tobacco Screening 1977 HIV Screening 1992 Relationship Safety Screening/Counseling 1992 Hypertension Screening (#1) 1995 Imm-Hepatitis B (1 of 3 - 19 + 3-dose series) 1996 Cervical Cancer Screening 1998 Pap Smear 1998 Breast Cancer Screening (Mammogram) 2017 CT Colonography 2022 Colonoscopy 2022 Colorectal Cancer Screening 2022 FIT/gFOBT 2022 Fecal DNA 2022 Flexible Sigmoidoscopy 2022 [id number] ( season) 2024 021, 09/12/2020 Imm-Influenza (#1) 2024 03/20/2020, 0 02/19/2018, 07/11/2016, Additional history exists Alcohol and Drug Screen 06/16/2024 Depression Annual Screen 06/16/2024 Imm-DTaP/Tdap/Td (3 - Td or Tdap) 04/19/2029 019, 08/15/2008 Cervical Ablation/Cold-Knife Conization Discontinued Cervical Cryotherapy Discontinued Colposcopy Discontinued Endometrial Biopsy Discontinued Excision/Leep Discontinued HPV Genotyping Discontinued Vaginal Pap Discontinued Vulvoscopy Discontinued Insurance [employer] PLAN Member Subscriber Plan / Payer (Ef fective 2020-Present) Name:Charline Palumbo Relation to Subscriber:Self Name:Charline Palumbo Payer ID:[id number] Group ID:[id number] Type:Medicaid Address: [facility] [address] [place] [address]
== END 2024-09-22 14:34 | disposition home or self-care (01) ==
PROVIDERS: Visit Provider Advanced Practice Midwife
DX: N91.1 Secondary amenorrhea (principal); N95.1 Menopausal and female climacteric states; Z32.02 Encounter for pregnancy test, result negative
CPT/HCPCS: 99213

== ENCOUNTER → 2024-09-22 13:55 | Outpatient (BNVA) | payer OTHER, SELFPAY | PROVIDERS: Visit Provider Advanced Practice Midwife | DX: N91.1 Secondary amenorrhea (principal); N95.1 Menopausal and female climacteric states | CPT/HCPCS: 81025; 99212 ==

== ENCOUNTER 2024-09-28 13:59 | Outpatient (REF) | payer OTHER, SELFPAY ==
--- OUTSIDE RECORDS SUMMARY | 2024-09-28 17:17 | XMS_ITS | Encounter Summary ---
Author Organization [employer] [facility] Address [address] [facility] 7 [place] [address] Care Team Providers Care Manager Union Name Role Phone Unavailable Primary Care Provider [...]
--- OUTSIDE RECORDS SUMMARY | 2024-09-28 17:17 | XMS_ITS | Clinical Summary ---
Author Organization [employer] [facility] Address [address] [place] [address] 7 [place] [address] Care Team Providers Care Manager Audio Name Role Phone Unavailable Primary Care Provider [...] Most Recently Relevant to Health Maintenance Insurance [facility] MEDICAID STAND ADULT
--- OUTSIDE RECORDS SUMMARY | 2024-09-28 17:17 | XMS_ITS | Clinical Summary ---
Author Organization [facility] Address [address] [place] [address] Care Team Providers Care Mechanic Foreman Name Role Phone Unavailable Primary Care Provider [...] 2022 Fecal DNA 2022 Flexible Sigmoidoscopy 2022 [id number] ( season) 2024 021, 09/12/2020 Imm-Influenza (#1) 2024 03/20/2020, 0 02/19/2018, 07/11/2016, Additional history exists Alcohol and Drug Screen 06/16/2024 Depression Annual Screen 06/16/2024 Imm-DTaP/Tdap/Td (3 - Td or Tdap) 04/19/2029 019, 08/15/2008 Cervical Ablation/Cold-Knife Conization Discontinued Cervical Cryotherapy Discontinued Colposcopy Discontinued Endometrial Biopsy Discontinued Excision/Leep Discontinued HPV Genotyping Discontinued Vaginal Pap Discontinued Vulvoscopy Discontinued Insurance [employer] PLAN Member Subscriber Plan / Payer (Ef fective 2020-Present) Name:Charline Palumbo Relation to Subscriber:Self Name:Charline Palumbo Payer ID:[id number] Group ID:[id number] Type:Medicaid Address: [facility] [address] [place] [address]
--- OUTSIDE RECORDS SUMMARY | 2024-09-28 17:17 | XMS_ITS | Clinical Summary ---
Author Organization [address] [place] [address] [place] [phone] Phone Care Team Providers Care Foam Dispenser Name Role Phone Anabel De Santiago MD [...] propionate (FLONASE) 50 mcg/actuation nasal spray 1 Winterset by Nasal route 2 Times Daily. 4 [...] Care Team Description 07/13/2024 Telephone Adult Medicine [address] [phone] Anabel De Santiago MD Sore [...] Vaccine ( season) 2024 06/23/2021, 10/10/2020, 09/12/2020 Depression Screening 10/15/2024 10/16/2023 Influenza Vaccine (Season Ended) 2025 04/08/2023, 07/08/2022, 03/26/2021, Additional history exists Cholesterol Screening (Lipid Panel) 03/26/2026 03/26/2021 DTaP,Tdap,and [...] Result * (ABNORMAL) Lipid panel (03/26/2021) Pathologist [facility] LDL/HDL Ratio 4 0 - 4 Triglycerides 361(A) 0 - 150 mg/dL Cholesterol 220(A) 0 - 200 mg/dL HDL 63 >=40 mg/dL LDL Cholesterol 85 0 - 100 mg/dL Blood Venous blood specimen / Unknown Historical Provider MD LAB BLOOD ORDERABLES Nisha l Result * Pap Smear (08/14/2020) Pathologist [facility] Pap smear no interpretation , abstracted Historical Provider HEALTH MAINTENANCE Final Result from Last 3 Months or Most Recently Relevant to Health Maintenance Insurance [facility] HEALTH PLAN Care Teams Foam Dispenser Relationship Specialty Start Date End Date Anabel De Santiago MD [address] [place] [address] PCP - General 10/28/22
[2024-09-29 04:58] LABS: Follicle Stimulating Hormone 5.4 mIU/mL
== END 2024-09-28 14:00 | disposition home or self-care (01) ==
LOC: HO.LAB 13:59
PROVIDERS: Visit Provider Advanced Practice Midwife
DX: N91.1 Secondary amenorrhea (principal)
CPT/HCPCS: 36415; 83001; 84146; 84443

== ENCOUNTER → 2025-01-06 09:15 | Outpatient (BNV) | payer OTHER, SELFPAY | PROVIDERS: PCP Internal Medicine; Visit Provider Radiology Body Imaging | DX: Z12.31 Encounter for screening mammogram for malignant neoplasm of breast (principal) | CPT/HCPCS: 77063; 77067 ==

== ENCOUNTER 2025-01-06 09:22 | Outpatient (REF) | payer OTHER, SELFPAY ==
--- NOTE | ~2025-01-06 | MM_ITS ---
EXAMINATION: MM SCREENING DIGITAL BREAST TOMOSYNTHESIS, BILATERAL CLINICAL INFORMATION: Screening. Asymptomatic. COMPARISON: Comparison made to multiple prior, most recent December 11, 2023, and most remote April 30, 2017. TECHNIQUE: Digital breast tomosynthesis is performed in both the craniocaudal and mediolateral oblique views along with computer-aided detection (CAD). Synthesized 2D images are generated from the tomosynthesis. FINDINGS: BREAST COMPOSITION: The breasts are heterogeneously dense, which may obscure small masses (ACR BI-RADS breast composition Category c). BILATERAL BREASTS: No significant masses, suspicious calcifications or other abnormalities are seen in either breast. MM/MM tomosynthesis screening BI IMPRESSION: BILATERAL BREASTS: Negative, no mammographic evidence of malignancy. Normal interval follow-up is recommended in 12 months. ASSESSMENT: BI-RADS 1 - Negative RECOMMENDATION: Routine annual mammography screening. FOLLOW-UP: 1 year F/U This examination should not preclude the clinical evaluation of a suspicious palpable abnormality. This patient's information was entered into a reminder system with a target due date for their next mammogram. Electronically signed by: Ashley Gan MD 01/11/2025 08:18 PM EDT
--- OUTSIDE RECORDS SUMMARY | 2025-01-06 09:54 | XMS_ITS | Clinical Summary ---
Author Organization [address] [place] [address] [place] [phone] Phone Care Team Providers Care Cook Mayonnaise Name Role Phone Anabel De Santiago MD Primary Care Pr ovider Allergies Active Allergy Reactions Criticality Noted Date Comments Other 10/08/2007 Seasonal Allergies Medications ibuprofen (ADVIL,MOTRIN) 600 mg tablet Take 1 tablet (600 mg total) by mouth every 8 (eight) hours if needed for mild pain or moderate pain. 4 Active SUMAtriptan (IMITREX) 50 mg tablet Take 50mg PO at first sign of headache; may repeat a dose after 2 hours, if needed. Max daily dose: 100 mg 4 Active fluticasone propionate (FLONASE) 50 mcg/actuation nasal spray Administer 2 sprays into each nostril 1 (one) time each day. 4 Active magnesium oxide (MAG-OX) 400 mg (241.3 elemental magnesium) tablet Take 1 tablet (400 mg total) by mouth 1 (one) time each day. 4 Active albuterol HFA (Ventolin HFA) 90 mcg/actuation inhaler Inhale 2 puffs by mouth every 6 (six) hours if needed for wheezing or shortness of breath. 4 Active olopatadine (PATANOL) 0.1 % ophthalmic solution Administer 1 drop into both eyes 2 (two) times a day. 10 mL 1 5 Active loratadine-pseu doephedrine (CLARITIN-D 12-hour) 5-120 mg per 12 hr tablet Take 1 tablet by mouth 2 (two) times a day if needed for allergies. Do not crush, chew, or split. 60 tablet 2 Active Active Problems Problem Noted Date Diagnosed Date Migraine without status migrainosus, not intract able 10/26/2024 History of kidney stones 10/26/2024 COVID-19 virus detected 06/04/2024 Postcholecystectomy diarrhea 03/20/2020 Seasonal allergies 10/22/2012 Asthma 12/14/2009 Allergic conjunctivitis 12/14/2009 Vasodepressor syncope 10/31/2005 Resolved Problems Problem Noted Date Diagnosed Date Resolved Date Headache 10/31/2005 10/26/2024 Encounters Date Type Department Care Team Description 01/03/2025 Telephone Adult Medicine [address] [phone] Anabel De Santiago MD Called patient 10/27/2024 Telephone Adult Medicine [address] [phone] Lori Rios [place] 10/26/2024 2:00 PM EDT Office Visit Adult Medicine [address] [phone] Maddie Mckee PA Mild intermittent asthma without complication (Primary Dx); Seasonal allergies; Allergic conjunctivitis of both eyes; Other migraine without status migrainosus, not intractable; Urinary frequency; History of kidney stones from Last 3 Months Immunizations Name Administration [...] Not Answered Alcohol Use Standard Drinks/Week Comments Yes 0 (1 standard drink = 0.6 oz pur e alcohol) Comments No Sex and Gender Information Value Date Recorded Sex Assigned at Not on file Legal Sex Female 4:33 PM EST Gender Identity Not on file Sexual Orientation Not on file Obstetrics History Last Filed Vital Signs Vital Sign Reading Time Taken Comments Blood Pressure 95/57 10/26/2024 2:23 PM EDT Pulse 71 10/26/2024 2:23 PM EDT Temperature 36.7 C (98.1 F) 10/26/2024 2:23 PM EDT Respiratory Rate 14 10/26/2024 2:23 PM EDT Oxygen Saturation 98% 10/26/2024 2:23 PM EDT Inhaled Oxygen Concentration - - Weight 66.2 kg (146 lb) 10/26/2024 2:23 PM EDT Height 170.2 cm (5' 7 ) 10/26/2024 2:23 PM EDT Body Mass Index 22.87 10/26/2024 2:23 PM EDT Plan of Treatment Health Maintenance Due Date Last Done Comments Breast Cancer Screening 1977 Hepatitis B Vaccines (1 of 3 - 19+ 3-dose series) 1996 Pneumococcal Vaccine: Pediatrics (0 to 5 Years) and At-Risk Patients (6 to 49 Years) (2 of 2 - PCV) 02/19/2019 02/19/2018 Colorectal Cancer Screening: Colonoscopy 05/15/2022 Social Influencers of Health Screening 05/15/2022 Cervical Cancer Screening: Pap Smear 08/15/2023 08/14/2020 COVID-19 Vaccine ( season) 2024 06/23/2021, 10/10/2020, 09/12/2020 Depression Screening 06/16/2024 10/16/2023 Influenza Vaccine (#1) 2025 , 07/08/2022, 03/26/2021, Additional history exists Cholesterol Screening [...] Procedure Name Priority Date/Time Associated Diagnosis Comments CULTURE URINE Routine 10/26/2024 3:19 PM EDT Urinary frequency History of kidney stones URINALYSIS WITH REFLEX MICROSCOPIC Routine 10/26/2024 3:18 PM EDT Urinary frequency History of kidney stones URINALYSIS WITH REFLEX MICROSCOPIC Routine 10/26/2024 3:18 PM EDT Urinary frequency History of kidney stones HM DEPRESSION SCREENING Routine 10/16/2023 HEPATITIS C SCREENING Routine 03/26/2021 HM HIV SCREENING Routine 03/26/2021 LIPID PANEL Routine 03/26/2021 HM PAP SMEAR Routine 08/14/2020 from Last 3 Months or Most Recently Relevant to Health Maintenance Results * (ABNORMAL) Culture urine (10/26/2024 3:19 PM EDT) Culture, Urine >100,000 CFU/mL Escherichia coli(A) JERRI 10/28/2024 1:49 PM EDT [facility] Urine Urine specimen obtained by clean catch procedure / Unknown Non-blood Collection / Unknown 10/26/2024 3:19 PM EDT 10/26/2024 3:19 PM EDT Narrative Organism Antibiotic Method Susceptibility Escherichia coli Amoxicillin/Clavulanate JERRI 4 ug/ml: Susceptible Escherichia coli Ampicillin/Sulbactam JERRI <=2 ug/ml: Susceptible Escherichia coli Piperacillin/Tazobactam JERRI <=4 ug/ml: Susceptible Escherichia coli Cefazolin (Urine) JERRI <=1 ug/ml: Susceptible Escherichia coli Cefoxitin JERRI <=4 ug/ml: Susceptible Escherichia coli Ceftazidime JERRI <=0.5 ug/ml: Susceptible Escherichia coli Ceftriaxone JERRI <=0.25 ug/ml: Susceptible Escherichia coli Cefepime JERRI <=0.12 ug/ml: Susceptible Escherichia coli Meropenem JERRI <=0.25 ug/ml: Susceptible Escherichia coli Amikacin JERRI 2 ug/ml: Susceptible Escherichia coli Gentamicin JERRI <=1 ug/ml: Susceptible Escherichia coli Ciprofloxacin JERRI <=0.06 ug/ml: Susceptible Escherichia coli Levofloxacin JERRI <=0.12 ug/ml: Susceptible Escherichia coli Nitrofurantoin JERRI <=16 ug/ml: Susceptible Escherichia coli Trimethoprim/Sulfamethoxazole JERRI <=20 ug/ml: Susceptible us Maddie DECKER LAB MICROBIOLOGY - GENERAL OR DERABLES Final Result [facility] [address] [place] [address], [place] [phone] * (ABNORMAL) Urinalysis with reflex microscopic (10/26/2024 3:18 PM EDT) Specific [place] Urine 1.017 1.003 - 1.030 LAB URINALYSIS - AUTOMATED METHOD 10/26/2024 4:26 PM [facility] pH, Urine 5.5 5.0 - 8.0 pH LAB URINALYSIS - AUTOMATED METHOD 10/26/2024 4:26 PM [facility] Leukocytes, Urine Trace(A) Negative LAB URINALYSIS - AUTOMATED METHOD 10/26/2024 4:26 PM [facility] Nitrite, Urine Positive(A) Negative LAB URINALYSIS - AUTOMATED METHOD 10/26/2024 4:26 PM [facility] Protein, Urine Negative <=Trace mg/dL LAB URINALYSIS - AUTOMATED METHOD 10/26/2024 4:26 PM [facility] Glucose, Urine Negative Negative mg/dL LAB URINALYSIS - AUTOMATED METHOD 10/26/2024 4:26 PM [facility] Ketones, Urine Negative Negative mg/dL LAB URINALYSIS - AUTOMATED METHOD 10/26/2024 4:26 PM EDT [facility] Urobilinogen , Urine 0.2 0.2 - 1.0 mg/dL LAB URINALYSIS - AUTOMATED METHOD 10/26/2024 4:26 PM [facility] Bilirubin, Urine Negative Negative LAB URINALYSIS - AUTOMATED METHOD 10/26/2024 4:26 PM [facility] Blood, Urine Negative Negative LAB URINALYSIS - AUTOMATED METHOD 10/26/2024 4:26 PM [facility] RBC, Urine 2.3 0 - 4 /HPF LAB URINALYSIS - AUTOMATED METHOD 10/26/2024 4:26 PM [facility] WBC, Urine 5.9(H) 0 - 4 /HPF LAB URINALYSIS - AUTOMATED METHOD 10/26/2024 4:26 PM [facility] Squamous Epithelial, Urine 28 0 - 60 /LPF LAB URINALYSIS - AUTOMATED METHOD 10/26/2024 4:26 PM [facility] Bacteria, Urine Many(A) Negative /HPF LAB URINALYSIS - AUTOMATED METHOD 10/26/2024 4:26 PM [facility] Hyaline Casts, Urine 3.2(H) 0 - 3 /LPF LAB URINALYSIS - AUTOMATED METHOD 10/26/2024 4:26 PM [facility] Urine Urine specimen obtained by clean catch procedure / Unknown Non-blood Collection / Unknown 10/26/2024 3:18 PM EDT 10/26/2024 3:18 PM EDT Maddie DECKER LAB URINE ORDERABLES Final Re sult [facility] [address] [place] [address], [place] [phone] * Depression Screening (10/16/2023) [facility] Depression Screening abstracted Historical Provider HEALTH MAINTENANCE Final Result * HIV Screening (03/26/2021) Pathologist [facility] HIV Screening abstracted [facility] Provider HEALTH MAINTENANCE Final Result * Hepatitis C Screening (03/26/2021) Hepatitis C Screening abstracted [facility] Provider HEALTH MAINTENANCE Final Result * (ABNORMAL) Lipid panel (03/26/2021) Pathologist [facility] LDL/HDL Ratio 4 0 - 4 Triglycerides 361(A) 0 - 150 mg/dL Cholesterol 220(A) 0 - 200 mg/dL HDL 63 >=40 mg/dL LDL Cholesterol 85 0 - 100 mg/dL Blood Venous blood specimen / Unknown Result [facility] Provider LAB BLOOD ORDERABLES Nisha l Result * Pap Smear (08/14/2020) Pathologist [facility] Pap smear no interpretation , abstracted Result [facility] Provider HEALTH MAINTENANCE Final Result from Last 3 Months or Most Recently Relevant to Health Maintenance Insurance [facility] HEALTH PLAN Care Teams Cook Mayonnaise Relationship Specialty Start Date End Date Anabel De Santiago MD [address] [place] [address] PCP - General 10/28/22
--- OUTSIDE RECORDS SUMMARY | 2025-01-06 09:54 | XMS_ITS | Clinical Summary ---
Author Organization [facility] Address [address] [place] [address] Care Team Providers Care Health Insurance Agent Name Role Phone Unavailable Primary Care Provider [...] 2022 Fecal DNA 2022 Flexible Sigmoidoscopy 2022 [id number] ( season) 2024 021, 09/12/2020 Imm-Influenza (#1) 2024 03/20/2020, 0 02/19/2018, 07/11/2016, Additional history exists Alcohol and Drug Screen 06/16/2024 Depression Annual Screen 06/16/2024 Imm-DTaP/Tdap/Td (3 - Td or Tdap) 04/19/2029 019, 08/15/2008 Cervical Ablation/Cold-Knife Conization Discontinued Cervical Cryotherapy Discontinued Colposcopy Discontinued Endometrial Biopsy Discontinued Excision/Leep Discontinued HPV Genotyping Discontinued Vaginal Pap Discontinued Vulvoscopy Discontinued Insurance [employer] PLAN Member Subscriber Plan / Payer (Ef fective 2020-Present) Name:Charline Palumbo Relation to Subscriber:Self Name:Charline Palumbo Payer ID:[id number] Group ID:[id number] Type:Medicaid Address: [facility] [address] [place] [address]
--- OUTSIDE RECORDS SUMMARY | 2025-01-06 09:54 | XMS_ITS | Encounter Summary ---
Author Organization [employer] [facility] Address [address] [facility] [address] [place] [address] Care Team Providers Care University Counselor Name Role Phone Unavailable Primary Care Provider [...]
== END 2025-01-06 09:23 | disposition home or self-care (01) ==
LOC: HO.MAMMO 09:22
PROVIDERS: PCP Internal Medicine; Visit Provider Internal Medicine
DX: Z12.31 Encounter for screening mammogram for malignant neoplasm of breast (principal)
CPT/HCPCS: 77063; 77067